=== PATIENT | female | born 1945 | race African-American/Black ===

== ENCOUNTER → 2016-09-06 | Outpatient (CLI) | payer MEDICARE ==
[2016-09-06 09:19] LABS: ALANINE AMINOTRANSFERASE 33 U/L (9-52); ALBUMIN 3.9 g/dL (3.5-5.0); ALKALINE PHOSPHATASE 52 U/L (38-126); ASPARTATE AMINO TRANSFERASE 19 U/L (14-36); BILIRUBIN,DIRECT 0.3 mg/dL (0.0-0.4); BILIRUBIN,TOTAL 0.6 mg/dL (0.2-1.3); CHOLESTEROL 175.26 mg/dL (0-200); Direct HDL 41 mg/dL (>40); TOTAL PROTEIN 7.8 g/dL (6.3-8.2); TRIGLYCERIDES 144 mg/dL (<150)
[2016-09-06 09:31] LABS: DIRECT LDL 77 mg/dL (<100)
== END ==
LOC: OD 07:51
PROVIDERS: ATTEND Specialist
DX: E11.9 Type 2 diabetes mellitus without complications (principal); I10 Essential (primary) hypertension; I27.2 Other secondary pulmonary hypertension; E66.8 Other obesity; I34.1 Nonrheumatic mitral (valve) prolapse; I48.0 Paroxysmal atrial fibrillation; R01.1 Cardiac murmur, unspecified; Z79.899 Other long term (current) drug therapy
CPT/HCPCS: 36415; 80061; 80076; 83036

== ENCOUNTER → 2016-10-26 | Outpatient (CLI) | payer MEDICARE ==
--- NOTE | 2016-10-26 15:21 | RADIOLOGY REPORT (SQ) ---
EXAM DESCRIPTION: CT ABD/PELVIS WITH IV ORAL COMPLETED DATE/TIME: 10/26/2016 2:04 pm REASON FOR STUDY: LOWER ABDOMINAL PAIN, UNSPECIFIED R10.30 LOWER ABDOMINAL PAIN, UNSPECIFIED COMPARISON: 07/11/2013. TECHNIQUE: CT scan of the abdomen and pelvis performed with oral contrast and no intravenous contras t. Images reviewed with lung, soft tissue, and bone windows. Reconstructed coronal and sagittal MPR i mages reviewed. All images stored on PACS. All CT scanners at this facility use dose modulation, iterative reconstruction, and/or weight based d osing when appropriate to reduce radiation dose to as low as reasonably achievable (ALARA). [facility]: Dose Right [facility]: CareDose [facility]: Dose Right [facility]: Teradose 4D [facility]: Smart Technologies RADIATION DOSE: Up-to-date CT equipment and radiation dose reduction techniques were employed. CTDIv ol: 15.3 - 17.2 mGy. DLP: 1661 mGy-cm.mGy. LIMITATIONS: None. FINDINGS: LOWER CHEST: No significant findings. No nodules or infiltrates. NON-CONTRASTED LIVER, SPLEEN, ADRENALS: Evaluation limited by lack of IV contrast. No identified sign ificant masses. PANCREAS: No masses. No peripancreatic inflammatory changes. GALLBLADDER: Surgically absent. RIGHT KIDNEY AND URETER: No solid masses. No significant calcification. No hydronephrosis or hydroure ter. LEFT KIDNEY AND URETER: No solid masses. No significant calcification. No hydronephrosis or hydrouret er. AORTA AND RETROPERITONEUM: No aneurysm. No retroperitoneal masses or adenopathy. BOWEL AND PERITONEAL CAVITY: Previous right hemicolectomy. Extensive diverticulosis throughout the c olon. No obvious masses or inflammatory changes. No free fluid. APPENDIX: Surgically absent. PELVIS, BLADDER, AND ABDOMINAL WALL: Heterogenous nodular appearance of the uterus with coarse calcif ications. No abdominal wall hernias. Bladder unremarkable. BONES: No significant findings. OTHER: No other significant finding. IMPRESSION: 1. PREVIOUS RIGHT HEMICOLECTOMY. EXTENSIVE COLONIC DIVERTICULOSIS. NO CT FINDINGS OF ACUTE DIVERTIC ULITIS. 2. FIBROID UTERUS. 3. NO OTHER SIGNIFICANT OR ACUTE ABDOMINAL PROCESS. TECHNICAL DOCUMENTATION: JOB ID: [id number] Quality ID # [id number]: Final reports with documentation of one or more dose reduction techniques (e.g., Au tomated exposure control, adjustment of the mA and/or kV according to patient size, use of iterative reconstruction technique) 2010 [employer]- All Rights Reserved
== END ==
LOC: RAD 13:13
PROVIDERS: ATTEND Internal Medicine
DX: K57.31 Diverticulosis of large intestine without perforation or abscess with bleeding (principal); D25.9 Leiomyoma of uterus, unspecified; R10.30 Lower abdominal pain, unspecified
CPT/HCPCS: 74177; 82565

== ENCOUNTER → 2017-01-06 | Outpatient (CLI) | payer MEDICARE ==
--- NOTE | 2017-01-06 13:02 | WOMENS IMAGING REPORT ---
EXAM DESCRIPTION: U/S ABDOMEN LIMITED COMPLETED DATE/TIME: 01/06/2017 10:09 am REASON FOR STUDY: UNSPECIFIED ABDOMINAL PAIN; R10.9 R10.9 UNSPECIFIED ABDOMINAL PAIN COMPARISON: CT abdomen pelvis 10/26/2016 TECHNIQUE: Dynamic and static grayscale images acquired of the abdomen and recorded on PACS. Additio nal selected color Doppler and spectral images recorded. LIMITATIONS: Large patient, midline bowel gas FINDINGS: PANCREAS: Midline pancreas unremarkable LIVER: Mild increased echogenicity of the liver could be seen in diffuse hepatocellular disease. No masses. LIVER VASCULATURE: Normal directional flow of the main portal vein and hepatic veins. GALLBLADDER: Surgically absent ULTRASOUND-DETECTED THOMAS'S SIGN: Negative. INTRAHEPATIC DUCTS AND COMMON DUCT: No definite intrahepatic biliary ductal dilatation. Common bile duct at the bernadine hepatis 8 to 9 mm in diameter. Distal most common duct not well seen due to duoden um gas. INFERIOR VENA CAVA: Normal flow. AORTA: No aneurysm. RIGHT KIDNEY: Normal size. Normal echogenicity. No solid or suspicious masses. 7 mm simple cyst upp er pole right kidney. No hydronephrosis. No calcifications. PERITONEAL AND RIGHT PLEURAL SPACE: No ascites or effusions. OTHER: No other significant findings. IMPRESSION: Mild increased echogenicity of the liver from diffuse hepatocellular disease. Post cholecystectomy. No gross biliary ductal dilatation. Distal most common duct not well seen due to duodenum gas TECHNICAL DOCUMENTATION: JOB ID: [id number]- All Rights Reserved
== END ==
LOC: WI 08:43
PROVIDERS: ATTEND Internal Medicine
DX: R10.9 Unspecified abdominal pain (principal)
CPT/HCPCS: 76705

== ENCOUNTER → 2017-01-18 | Outpatient (CLI) | payer MEDICARE ==
--- NOTE | 2017-01-18 16:41 | WOMENS IMAGING REPORT ---
EXAM DESCRIPTION: 3D SCREENING MAMMO BILAT COMPLETED DATE/TIME: 01/18/2017 11:57 am REASON FOR STUDY: ROUTINE SCREENING; Z12.31 Z12.31 ENCNTR SCREEN MAMMOGRAM FOR MALIGNANT NEOPLASM O F MEGHAN COMPARISON: Multiple since 2008 TECHNIQUE: Standard craniocaudal and mediolateral oblique views of each breast recorded using digita l acquisition and breast tomosynthesis. LIMITATIONS: None. FINDINGS: Findings present which are benign by mammographic criteria. No suspicious masses, calcifi cations or architectural distortion. Pertinent benign findings: Stable benign calcifications bilaterally Read with the assistance of CAD. .[facility] - R2 Cenova Version 1.3 .[facility] Imaging - R2 Cenova Version 1.3 .[facility] Imaging - R2 Cenova Version 2.4 .[facility] - R2 Cenova Version 2.4 .[facility] - R2 [employer] Supply Chain Planning Version 9.2 Benign mammographic findings may include one or more of the following: Smooth masses, popcorn/rim/co arse calcifications, asymmetries, post-procedure changes, and lesions with long-standing stability. IMPRESSION: BENIGN MAMMOGRAPHIC FINDINGS. BIRADS 2 BREAST DENSITY: b. There are scattered areas of fibroglandular density. BIRAD: 2 BENIGN FINDING(S) RECOMMENDATION: RECOMMENDATION: ROUTINE SCREENING Please continue yearly bilateral screening tomosynthesis in January 2018 COMMENT: The patient has been notified of the results by letter per SA requirements. Additional no tification policies are in place for contacting patient with suspicious or incomplete findings. Quality ID #[id number]: The [employer] recommends an annual screening mammogram for women aged 40 years or over. This facility utilizes a reminder system to ensure that all patients receive reminder letters, and/or direct phone calls for appointments. This includes reminders for routine scr eening mammograms, diagnostic mammograms, or other Breast Imaging Interventions when appropriate. Th is patient will be placed in the appropriate reminder system. The [employer] (ACR) has developed recommendations for screening MRI of the breast s in certain patient populations, to be used in conjunction with mammography. Breast MRI surveillanc e may be appropriate for women with more than 20% lifetime risk of developing breast cancer as deter mined by genetic testing, significant family history of the disease, or history of mantle radiation f or Hodgkins Disease. ACR Practice Guidelines 2008. DBT Technology DBT is a type of tomographic mammography. With conventional mammography, overlapping breast tissue ma y make lesions difficult to detect, even with good compression. DBT uses an x-ray tube that rotates a round the breast, taking images at different angles. These images are then combined to create thin sl ices of the breast that the radiologist can view as a 3D reconstruction. The [employer] unit can perform full-field digital mammograms (2D imaging); or DBT (3D imaging); or both, in a combination mode that quickly performs both the mammogram and the tomosynthesis scan while the breast is still compressed. PQRS 6045F: Fluoroscopic imaging is not utilized for breast tomosynthesis. TECHNICAL DOCUMENTATION: FINDING NUMBER: (1) ASSESSMENT: (1) JOB ID: [id number] [employer]- All Rights Reserved
== END ==
LOC: WI 11:20
PROVIDERS: ATTEND Obstetrics & Gynecology Gynecology
DX: Z12.31 Encounter for screening mammogram for malignant neoplasm of breast (principal)
CPT/HCPCS: 77063; G0202; 77067

== ENCOUNTER → 2017-02-15 | Outpatient (CLI) | payer MEDICARE ==
[2017-02-15 11:33] LABS: HEMOGLOBIN 10.6 g/dL (12.0-15.5); HGB HCT DIFFERENCE -0.2; MEAN CORPUSCULAR HEMOGLOBIN 28.5 pg (27.0-33.4); MEAN CORPUSCULAR VOLUME 87 fl (80-97); RED CELL DISTRIBUTION WIDTH 14.6 % (11.5-14.0); WHITE BLOOD COUNT 4.5 10^3/uL (4.0-10.5)
[2017-02-15 11:38] LABS: APPEARANCE,URINE SLIGHTLY-CLOUDY; BILIRUBIN,URINE NEGATIVE (NEGATIVE); GLUCOSE, URINE 50 mg/dL (NEGATIVE); KETONES,URINE NEGATIVE (NEGATIVE); LEUKOCYTE ESTERASE,URINE MODERATE (NEGATIVE); NITRITE,URINE NEGATIVE (NEGATIVE); PROTEIN,URINE NEGATIVE (NEGATIVE); URINE SPECIFIC GRAVITY 1.015; UROBILINOGEN,URINE NEGATIVE mg/dL (<2.0)
[2017-02-15 12:02] LABS: BLOOD UREA NITROGEN 12 mg/dL (7-20); CALCIUM 9.6 mg/dL (8.4-10.2); CARBON DIOXIDE 30 mmol/L (22-30); CHLORIDE 101 mmol/L (98-107); GLUCOSE 155 mg/dL (75-110); POTASSIUM 3.7 mmol/L (3.6-5.0)
[2017-02-15 12:04] LABS: ANION GAP 15 (5-19); SODIUM 145.8 mmol/L (137-145)
== END ==
LOC: OD 10:23
PROVIDERS: ATTEND Internal Medicine Nephrology
DX: I10 Essential (primary) hypertension (principal); E11.9 Type 2 diabetes mellitus without complications
CPT/HCPCS: 36415; 80048; 81001; 85027

== ENCOUNTER → 2017-03-22 | Outpatient (CLI) | payer MEDICARE ==
[2017-03-22 11:02] LABS: HEMATOCRIT 31.3 % (36.0-47.0); HEMOGLOBIN 10.4 g/dL (12.0-15.5); HGB HCT DIFFERENCE -0.1; MEAN CORPUSCULAR HEMOGLOBIN 28.6 pg (27.0-33.4); MEAN CORPUSCULAR HGB CONC 33.3 g/dL (32.0-36.0); MEAN CORPUSCULAR VOLUME 86 fl (80-97); RED BLOOD COUNT 3.64 10^6/uL (3.72-5.28); RED CELL DISTRIBUTION WIDTH 14.7 % (11.5-14.0); WHITE BLOOD COUNT 5.8 10^3/uL (4.0-10.5)
[2017-03-28 10:04] LABS: A/G RATIO 0.7 (0.7-1.7); ALPHA-1-GLOBULIN 2 0.4 g/dL (0.0-0.4); PROTEIN TOTAL SERUM 7.8 g/dL (6.0-8.5)
== END ==
LOC: OD 09:10
PROVIDERS: ATTEND Internal Medicine Nephrology
DX: I12.9 Hypertensive chronic kidney disease with stage 1 through stage 4 chronic kidney disease, or unspecified chronic kidney disease (principal); N18.2 Chronic kidney disease, stage 2 (mild); E11.9 Type 2 diabetes mellitus without complications; D64.9 Anemia, unspecified
CPT/HCPCS: 36415; 82728; 83540; 83550; 84165; 84443; 85027

== ENCOUNTER → 2017-04-25 | Outpatient (CLI) | payer MEDICARE ==
--- NOTE | 2017-04-25 15:48 | RADIOLOGY REPORT (SQ) ---
EXAM DESCRIPTION: BONE SURVEY COMPLETE COMPLETED DATE/TIME: 04/25/2017 3:25 pm REASON FOR STUDY: Z86.2 PERSONAL HISTORY OF DISEASES OF THE BLOOD AND BLOOD-FORMING Z86.2 PRSNL HIS TORY OF DIS OF THE BLD/BLD-FORM ORG/[facility] COMPARISON: None. TECHNIQUE: Images of the axial and proximal appendicular skeleton are obtained, along with lateral s kull and frontal chest films. LIMITATIONS: None. FINDINGS: AP CHEST: No bony findings. Lungs are clear. LATERAL SKULL: No worrisome bone lesions. AP BOTH HUMERI: No worrisome bone lesions. TWO-VIEW LUMBAR SPINE: No worrisome bone lesions. TWO-VIEW THORACIC SPINE: No worrisome bone lesions. AP PELVIS: No worrisome bone lesions. AP BOTH FEMURS: No worrisome bone lesions. OTHER: Degenerative changes are identified in the cervical and thoracic spines and to a lesser extent the lumbar spine. IMPRESSION: NO WORRISOME BONE LESIONS. TECHNICAL DOCUMENTATION: JOB ID: [id number] [employer]- All Rights Reserved
== END ==
LOC: RAD 15:02
PROVIDERS: ATTEND Internal Medicine Medical Oncology
DX: Z86.2 Personal history of diseases of the blood and blood-forming organs and certain disorders involving the immune mechanism (principal); D64.9 Anemia, unspecified
CPT/HCPCS: 77075

== ENCOUNTER → 2017-09-22 | Outpatient (CLI) | payer MEDICARE ==
[2017-09-22 13:50] LABS: HEMATOCRIT 34.2 % (36.0-47.0); HEMOGLOBIN 11.2 g/dL (12.0-15.5); MEAN CORPUSCULAR HEMOGLOBIN 29.1 pg (27.0-33.4); MEAN CORPUSCULAR HGB CONC 32.8 g/dL (32.0-36.0); MEAN CORPUSCULAR VOLUME 89 fl (80-97); PLATELET COUNT 209 10^3/uL (150-450); RED BLOOD COUNT 3.87 10^6/uL (3.72-5.28); RED CELL DISTRIBUTION WIDTH 14.6 % (11.5-14.0); WHITE BLOOD COUNT 5.2 10^3/uL (4.0-10.5)
[2017-09-22 14:10] LABS: ANION GAP 11 (5-19); BLOOD UREA NITROGEN 19 mg/dL (7-20); CALCIUM 9.8 mg/dL (8.4-10.2); CARBON DIOXIDE 29 mmol/L (22-30); CHLORIDE 106 mmol/L (98-107); GLUCOSE 96 mg/dL (75-110); POTASSIUM 4.7 mmol/L (3.6-5.0); SODIUM 145.5 mmol/L (137-145)
[2017-09-25 16:39] LABS: ALBUMIN 2 3.7 g/dL (2.9-4.4); ALPHA-2-GLOBULIN 2 0.7 g/dL (0.4-1.0); BETA GLOBULINS 0.9 g/dL (0.7-1.3); GAMMA GLOBULIN 1.7 g/dL (0.4-1.8); GLOBULIN TOTAL 3.6 g/dL (2.2-3.9); PROTEIN TOTAL SERUM 7.3 g/dL (6.0-8.5)
[2017-09-26 07:21] LABS: MONOCLONAL SPIKE 0.9 g/dL (Not Observ)
== END ==
LOC: OD 12:52
PROVIDERS: ATTEND Internal Medicine Nephrology
DX: I10 Essential (primary) hypertension (principal); E11.9 Type 2 diabetes mellitus without complications; D64.9 Anemia, unspecified
CPT/HCPCS: 36415; 80048; 84165; 85027

== ENCOUNTER → 2018-01-24 | Outpatient (CLI) | payer MEDICARE ==
--- NOTE | 2018-01-24 15:34 | WOMENS IMAGING REPORT ---
EXAM DESCRIPTION: BILAT SCREENING MAMMO W/CAD COMPLETED DATE/TIME: 01/24/2018 11:13 am REASON FOR STUDY: SCREENING MAMMO Z12.31 ENCNTR SCREEN MAMMOGRAM FOR MALIGNANT NEOPLASM OF MEGHAN COMPARISON: 2012 to 2016 TECHNIQUE: Standard craniocaudal and mediolateral oblique views of each breast recorded using digita l acquisition. LIMITATIONS: None. FINDINGS: No masses, calcifications or architectural distortion. No areas of suspicion. Read with the assistance of CAD. .[facility] - R2 Cenova Version 1.3 .[facility] Imaging - R2 Cenova Version 1.3 .[facility] - R2 Cenova Version 2.4 .[facility] [place] [facility] - R2 Cenova Version 2.4 .[facility] - R2 Manager Utilization Review Version 9.2 IMPRESSION: NORMAL MAMMOGRAM. BIRADS 1. BREAST DENSITY: b. There are scattered areas of fibroglandular density. BIRAD: 1 NEGATIVE RECOMMENDATION: ROUTINE SCREENING COMMENT: The patient has been notified of the results by letter per MQSA requirements. Additional no tification policies are in place for contacting patient with suspicious or incomplete findings. Quality ID #225: The [employer] recommends an annual screening mammogram for women aged 40 years or over. This facility utilizes a reminder system to ensure that all patients receive reminder letters, and/or direct phone calls for appointments. This includes reminders for routine scr eening mammograms, diagnostic mammograms, or other Breast Imaging Interventions when appropriate. Th is patient will be placed in the appropriate reminder system. The [employer] (ACR) has developed recommendations for screening MRI of the breast s in certain patient populations, to be used in conjunction with mammography. Breast MRI surveillanc e may be appropriate for women with more than 20% lifetime risk of developing breast cancer as deter mined by genetic testing, significant family history of the disease, or history of mantle radiation f or Hodgkins Disease. ACR Practice Guidelines 2008. TECHNICAL DOCUMENTATION: FINDING NUMBER: (1) ASSESSMENT: (1) JOB ID: [id number] [employer]- All Rights Reserved Reading location - IP/workstation name: [email or web address]
== END ==
LOC: WI 10:52
PROVIDERS: ATTEND Internal Medicine
DX: Z12.31 Encounter for screening mammogram for malignant neoplasm of breast (principal)
CPT/HCPCS: 77067

== ENCOUNTER → 2019-02-20 | Outpatient (CLI) | payer MEDICARE ==
--- NOTE | 2019-02-20 14:36 | WOMENS IMAGING REPORT ---
EXAM DESCRIPTION: BILAT SCREENING MAMMO W/CAD COMPLETED DATE/TIME: 02/20/2019 11:46 am REASON FOR STUDY: Z12.31 SCREENING MAMMO Z12.31 ENCNTR SCREEN MAMMOGRAM FOR MALIGNANT NEOPLASM OF B RE COMPARISON: Multiple since 2008 EXAM PARAMETERS: Standard craniocaudal and mediolateral oblique views of each breast recorded using digital acquisition. Read with the assistance of CAD. .[employer] Version 9.2 LIMITATIONS: None. FINDINGS: No suspicious masses, suspicious calcifications or architectural distortion. No areas of c oncern. IMPRESSION: Negative MAMMOGRAM. BIRADS 1 BREAST DENSITY: b. There are scattered areas of fibroglandular density. BIRAD: ASSESSMENT: 1 NEGATIVE RECOMMENDATION: ROUTINE SCREENING Please continue yearly bilateral screening mammography/tomosynthesis in February 2020 COMMENT: The patient has been notified of the results by letter per SA requirements. Additional no tification policies are in place for contacting patient with suspicious or incomplete findings. Quality ID #[id number]: The [employer] recommends an annual screening mammogram for women aged 40 years or over. This facility utilizes a reminder system to ensure that all patients receive reminder letters, and/or direct phone calls for appointments. This includes reminders for routine scr eening mammograms, diagnostic mammograms, or other Breast Imaging Interventions when appropriate. Th is patient will be placed in the appropriate reminder system. TECHNICAL DOCUMENTATION: FINDING NUMBER: (1) ASSESSMENT: (1) JOB ID: [id number] [employer]- All Rights Reserved Reading location - IP/workstation name: [email or web address]
== END ==
LOC: RAD 11:00
PROVIDERS: ATTEND Internal Medicine
DX: Z12.31 Encounter for screening mammogram for malignant neoplasm of breast (principal)
CPT/HCPCS: 77067

== ENCOUNTER → 2019-06-10 | Outpatient (CLI) | payer MEDICARE ==
[2019-06-10 17:58] LABS: HEMOGLOBIN 11.3 g/dL (12.0-15.5); MEAN CORPUSCULAR HEMOGLOBIN 30.6 pg (27.0-33.4); MEAN CORPUSCULAR HGB CONC 34.2 g/dL (32.0-36.0); MEAN CORPUSCULAR VOLUME 89 fl (80-97); PLATELET COUNT 225 10^3/uL (150-450); RED CELL DISTRIBUTION WIDTH 14.3 % (11.5-14.0); WHITE BLOOD COUNT 6.2 10^3/uL (4.0-10.5)
== END ==
LOC: LAB 17:44
PROVIDERS: ATTEND Internal Medicine Gastroenterology
DX: K62.5 Hemorrhage of anus and rectum (principal)
CPT/HCPCS: 36415; 82728; 85027

== ENCOUNTER → 2019-07-24 | Outpatient (CLI) | payer MEDICARE ==
[2019-07-24 16:42] LABS: ABSOLUTE BASOPHILS # (AUTO) 0.1 10^3/uL (0.0-0.2); ABSOLUTE EOSINOPHILS # (AUTO) 0.1 10^3/uL (0.0-0.6); ABSOLUTE LYMPHOCYTES (AUTO) 1.6 10^3/uL (0.5-4.7); ABSOLUTE MONOCYTES (AUTO) 0.4 10^3/uL (0.1-1.4); ABSOLUTE NEUT (AUTO) 3.3 10^3/uL (1.7-8.2); BASOPHILS % (AUTO) 1.2 % (0-2); EOSINOPHILS % (AUTO) 1.7 % (0-6); HEMATOCRIT 36.6 % (36.0-47.0); HEMOGLOBIN 12.3 g/dL (12.0-15.5); LYMPHOCYTES % (AUTO) 29.2 % (13-45); MEAN CORPUSCULAR HEMOGLOBIN 30.2 pg (27.0-33.4); MEAN CORPUSCULAR HGB CONC 33.6 g/dL (32.0-36.0); MEAN CORPUSCULAR VOLUME 90 fl (80-97); MONOCYTES % (AUTO) 7.5 % (3-13); PLATELET COUNT 249 10^3/uL (150-450); RED BLOOD COUNT 4.07 10^6/uL (3.72-5.28); RED CELL DISTRIBUTION WIDTH 14.9 % (11.5-14.0); SEGMENTED NEUTROPHILS % (AUTO) 60.4 % (42-78); TOTAL CELLS COUNTED % (AUTO) 100 %; WHITE BLOOD COUNT 5.5 10^3/uL (4.0-10.5)
[2019-07-24 18:27] LABS: ANION GAP 13 (5-19); BLOOD UREA NITROGEN 20 mg/dL (7-20); CALCIUM 10.3 mg/dL (8.4-10.2); CARBON DIOXIDE 23 mmol/L (22-30); CHLORIDE 104 mmol/L (98-107); GLUCOSE 129 mg/dL (75-110); POTASSIUM 4.2 mmol/L (3.6-5.0)
[2019-07-25 11:28] LABS: APPEARANCE,URINE SLIGHTLY-CLOUDY; BILIRUBIN,URINE NEGATIVE (NEGATIVE); COLOR,URINE YELLOW; GLUCOSE, URINE 50 mg/dL (NEGATIVE); KETONES,URINE NEGATIVE (NEGATIVE); LEUKOCYTE ESTERASE,URINE MODERATE (NEGATIVE); NITRITE,URINE NEGATIVE (NEGATIVE); PROTEIN,URINE NEGATIVE (NEGATIVE); URINE SPECIFIC GRAVITY 1.013; UROBILINOGEN,URINE NEGATIVE mg/dL (<2.0)
[2019-07-25 14:40] LABS: C DIFFICILE GDH NEGATIVE (NEGATIVE)
== END ==
LOC: OD 15:37
PROVIDERS: ATTEND Internal Medicine Gastroenterology
DX: R19.7 Diarrhea, unspecified (principal); R30.0 Dysuria
CPT/HCPCS: 36415; 80048; 81001; 85025; 87324; 87449; 89055

== ENCOUNTER 2020-02-07 17:25 | Emergency (ER) | payer MEDICARE ==
--- NOTE | 2020-02-07 17:59 | ER Document Report ---
ED Medical Screen (RME) - General Chief Complaint: Flu Symptoms Stated Complaint: UPPER BACK PAIN,ARM PAIN Time Seen by Provider: 02/07/20 17:53 Primary Care Provider: GAB IRWIN MD [Primary Care Provider] - Follow up as needed Mode of Arrival: Ambulatory Information source: Patient Notes: 74-year-old female presented to ED for cough cold congestion body aches. She had a Covid test today but does not know the results. She states she does have cough and congestion she does have history of A. fib. She states she has not done anything that should be making her ache all over. She does not smoke or drink. She does not have COPD asthma history. Have reviewed her history with her and updated it. I have greeted and performed a rapid initial assessment of this patient. A comprehensive ED assessment and evaluation of the patient, analysis of test results and completion of medical decision making process will be conducted by an additional ED providers. TRAVEL OUTSIDE OF THE [place] IN LAST 30 DAYS: No - Related Data Allergies/Adverse Reactions: Penicillins Allergy (Intermediate, Verified 02/02/17 20:40) itchy rash Past Medical History - General Information source: Patient - Social History Cigarette use (# per day): No Frequency of alcohol use: None Drug Abuse: None Lives with: Alone Family history: Reviewed & Not Pertinent - Past Medical History Cardiac Medical History: Reports: Hx Hypertension - medicated Pulmonary Medical History: Reports: Hx Bronchitis EENT Medical History: Reports: None Neurological Medical History: Reports: None Endocrine Medical History: Reports: Hx Diabetes Mellitus Type 2 Renal/ Medical History: Reports: None Malignancy Medical History: Reports: None GI Medical History: Reports: Hx Diverticulitis, Hx Gastroesophageal Reflux Disease, Hx Irritable Bowel, Hx Colonoscopy, Hx Endoscopy Musculoskeltal Medical History: Reports Hx Arthritis Skin Medical History: Reports None Psychiatric Medical History: Reports: None Traumatic Medical History: Reports: None Past Surgical History: Reports: Hx Bowel Surgery - Partial colectomy for bleeding diverticular disease, Hx Cholecystectomy - Immunizations Hx Diphtheria, Pertussis, Tetanus Vaccination: Yes History of Pneumococcal Vaccine: No History of Influenza Vaccine for 01/2019 - 06/2019 Season: No Physical Exam - Vital signs Vitals: Temp Pulse Resp BP Pulse Ox 99.6 F 74 16 198/90 H 99 02/07/20 17:33 02/07/20 17:33 02/07/20 17:33 02/07/20 17:33 02/07/20 17:33 Course - Vital Signs Vital signs: Temp Pulse Resp BP Pulse Ox 99.6 F 74 16 198/90 H 99 02/07/20 17:33 02/07/20 17:33 02/07/20 17:33 02/07/20 17:33 02/07/20 17:33 Doctor's Discharge - Discharge Referrals: GAB IRWIN MD [Primary Care Provider] - Follow up as needed
--- NOTE | 2020-02-07 18:38 | RADIOLOGY REPORT (SQ) ---
EXAM DESCRIPTION: CHEST SINGLE VIEW IMAGES COMPLETED DATE/TIME: 02/07/2020 6:24 pm REASON FOR STUDY: Cough congestion short of breath COMPARISON: 07/01/2012 EXAM PARAMETERS: NUMBER OF VIEWS: One view. TECHNIQUE: Single frontal radiographic view of the chest acquired. RADIATION DOSE: NA LIMITATIONS: None. FINDINGS: LUNGS AND PLEURA: No opacities, masses or pneumothorax. No pleural effusion. MEDIASTINUM AND HILAR STRUCTURES: No masses. Contour normal. HEART AND VASCULAR STRUCTURES: The heart size is borderline. There is no pulmonary edema. BONES: No acute findings. HARDWARE: None in the chest. OTHER: No other significant finding. IMPRESSION: Borderline cardiomegaly without pulmonary edema. TECHNICAL DOCUMENTATION: JOB ID: [id number] [address]- All Rights Reserved Reading location - IP/workstation name: [email or web address]
[2020-02-07 19:54] LABS: ABSOLUTE LYMPHOCYTES (AUTO) 0.5 10^3/uL (0.5-4.7); ABSOLUTE MONOCYTES (AUTO) 0.5 10^3/uL (0.1-1.4); ABSOLUTE NEUT (AUTO) 3.6 10^3/uL (1.7-8.2); BASOPHILS % (AUTO) 0.3 % (0-2); EOSINOPHILS % (AUTO) 0.3 % (0-6); HEMOGLOBIN 12.2 g/dL (12.0-15.5); LYMPHOCYTES % (AUTO) 11.1 % (13-45); MEAN CORPUSCULAR HGB CONC 33.8 g/dL (32.0-36.0); MEAN CORPUSCULAR VOLUME 89 fl (80-97); MONOCYTES % (AUTO) 11.5 % (3-13); PLATELET COUNT 187 10^3/uL (150-450); RED BLOOD COUNT 4.05 10^6/uL (3.72-5.28); RED CELL DISTRIBUTION WIDTH 14.5 % (11.5-14.0); SEGMENTED NEUTROPHILS % (AUTO) 76.8 % (42-78); TOTAL CELLS COUNTED % (AUTO) 100 %; WHITE BLOOD COUNT 4.7 10^3/uL (4.0-10.5)
[2020-02-07 20:17] LABS: ALBUMIN 4.5 g/dL (3.5-5.0); ALKALINE PHOSPHATASE 50 U/L (38-126); ANION GAP 10 (5-19); ASPARTATE AMINO TRANSFERASE 23 U/L (14-36); BILIRUBIN,DIRECT 0.1 mg/dL (0.0-0.4); BILIRUBIN,TOTAL 0.4 mg/dL (0.2-1.3); BLOOD UREA NITROGEN 16 mg/dL (7-20); CALCIUM 10.1 mg/dL (8.4-10.2); CARBON DIOXIDE 30 mmol/L (22-30); CHLORIDE 102 mmol/L (98-107); GLUCOSE 156 mg/dL (75-110); POTASSIUM 3.7 mmol/L (3.6-5.0); TOTAL PROTEIN 8.6 g/dL (6.3-8.2)
[2020-02-07 20:22] LABS: A TYPE INFLUENZA AG NEGATIVE (NEGATIVE); B INFLUENZA AG NEGATIVE (NEGATIVE)
[2020-02-07] MEDS ORDERED: IBUPROFEN 400 MG TABLET PO ONE (20:45)
--- NOTE | 2020-02-07 21:40 | ER Document Report ---
ED General - General Chief Complaint: Flu Symptoms Stated Complaint: UPPER BACK PAIN,ARM PAIN Time Seen by Provider: 02/07/20 17:53 Primary Care Provider: GAB IRWIN MD [Primary Care Provider] - Follow up as needed Mode of Arrival: Ambulatory Notes: 74-year-old female history of high blood pressure, diabetes presents with concern that she has COVID-19. Patient has had a mild intermittent dry cough for 2 days associated with nasal congestion and malaise with diffuse myalgia over back and the arms and legs. Patient otherwise feels well, had Covid test done at urgent care by because she cannot get the result today and was worried about having it she came to the emergency department. Patient has not gotten results yet. Patient denies any productive cough, shortness of breath, d izziness, syncope, chest pain, productive cough, lower extremity edema, abdominal pain, vomiting, diarrhea, rashes, sick contacts TRAVEL OUTSIDE OF THE [place] IN LAST 30 DAYS: No - Related Data Allergies/Adverse Reactions: Penicillins Allergy (Intermediate, Verified 02/02/17 20:40) itchy rash Past Medical History - General Information source: Patient - Social History Smoking Status: Never Smoker Cigarette use (# per day): No Frequency of alcohol use: None Drug Abuse: None Lives with: Alone Family History: Reviewed & Not Pertinent - Past Medical History Cardiac Medical History: Reports: Hx Hypertension - medicated Pulmonary Medical History: Reports: None, Hx Bronchitis EENT Medical History: Reports: None Neurological Medical History: Reports: None Endocrine Medical History: Reports: Hx Diabetes Mellitus Type 2 Renal/ Medical History: Reports: None Malignancy Medical History: Reports: None GI Medical History: Reports: Hx Diverticulitis, Hx Gastroesophageal Reflux Disease, Hx Irritable Bowel, Hx Colonoscopy, Hx Endoscopy Musculoskeletal Medical History: Reports Hx Arthritis Skin Medical History: Reports None Psychiatric Medical History: Reports: None Traumatic Medical History: Reports: None Past Surgical History: Reports: Hx Bowel Surgery - Partial colectomy for bleeding diverticular disease, Hx Cholecystectomy - Immunizations Hx Diphtheria, Pertussis, Tetanus Vaccination: Yes History of Pneumococcal Vaccine: No Review of Systems - Review of Systems Notes: REVIEW OF SYSTEMS: CONSTITUTIONAL : Denies fever, chills, or sweats. EENT: + recent cold symptoms, denies throat pain CARDIOVASCULAR: Denies chest pain, ZANE RESPIRATORY: + cough, denies shortness of breath. GASTROINTESTINAL: Denies abdominal pain, nausea/vomiting. GENITOURINARY: Denies difficulty urinating, painful urination. FEMALE GENITOURINARY: Denies abnormal vaginal bleeding, vaginal discharge. MUSCULOSKELETAL: Denies neck pain, +back pain. SKIN: Denies rash or skin lesions. HEMATOLOGIC : Denies easy bruising or bleeding. LYMPHATIC: Denies swollen, enlarged glands. NEUROLOGICAL: Denies headache, denies change in gait. PSYCHIATRIC: Denies anxiety or stress or depression. Physical Exam - Vital signs Vitals: Temp Pulse Resp BP Pulse Ox 99.6 F 74 16 198/90 H 99 02/07/20 17:33 02/07/20 17:33 02/07/20 17:33 02/07/20 17:33 02/07/20 17:33 - Notes Notes: PHYSICAL EXAMINATION: GENERAL: Well-appearing, well-nourished, spry talkative and cheerful elderly woman appearing stated age sitting up in stretcher with no visible signs of discomfort and in no acute distress HEAD: Atraumatic, normocephalic. EYES: Pupils equal round and appropriate constriction, sclera anicteric, conjunctiva are normal. ENT: nares patent, moist mucous membranes. NECK/BACK: Normal range of motion, supple without lymphadenopathy, no midline C/T/L/spinal tenderness or deformity LUNGS: Breath sounds clear to auscultation bilaterally and equal. No wheezes rales or rhonchi. Normal respiratory rate and effort, speaking in full sentences, managing secretions, no tripoding, no accessory muscle use HEART: Regular rate and rhythm with faint systolic murmur, no rubs, no gallops ABDOMEN: Soft, nontender, no guarding, no masses, no CVAT EXTREMITIES: Normal range of motion, no pitting or edema. No cyanosis. NEUROLOGICAL: Awake, alert, conversing appropriately, moves all extremities spontaneously. PSYCH: Normal mood, normal affect. SKIN: Warm, Dry, normal turgor, no rashes or lesions noted. Course - Re-evaluation Re-evalutation: 02/07/20 21:38 Patient with very mild viral symptoms of short duration, completely normal respiratory status, very well-appearing, no concerning exam findings. Patient's blood pressure elevated but asymptomatic, likely secondary to her current viral infection. Patient took acetaminophen for her symptoms without relief prior to arrival, I discussed with her and her daughter whether or not she should try ibuprofen and she denies ever having any problem with NSAIDs in the past or any bleeding or renal history and agreed to trial of ibuprofen. Obtain lab work to ensure that patient had no significant RYLEE or rhabdo was from her myalgia viral symptoms and no electrolyte abnormalities requiring immediate treatment. Patient's lab work all looks reassuring, normal EKG, borderline cardiomegaly on chest x-ray which I have instructed patient to follow-up with her primary doctor. Patient feels reassured and very well at this time and is appropriate for outpatient management with close PCP follow-up. Gave patient return to ED precautions which she demonstrated understanding of. The patient was evaluated during the global COVID-19 pandemic and that diagnosis was suspected/considered upon their initial presentation. Their evaluation, treatment and testing was consistent with current guidelines for patients who present with complaints or symptoms that may be related to COVID-19. - Vital Signs Vital signs: Temp Pulse Resp BP Pulse Ox 99.6 F 74 16 198/90 H 99 02/07/20 17:33 02/07/20 17:33 02/07/20 17:33 02/07/20 17:33 02/07/20 17:33 - Laboratory Result Diagrams: 02/07/20 19:23 02/07/20 19:23 Laboratory results interpreted by me: 02/07/20 02/07/20 19:23 19:23 RDW 14.5 H Lymph % (Auto) 11.1 L Est GFR (MDRD) Non-Af 57 L Glucose 156 H Total Protein 8.6 H - EKG Interpretation by Me Additional EKG results interpreted by me: 02/07/20 21:51 Sinus rhythm, borderline LVH, no significant ST elevations or depressions, no significant T wave abnormalities Discharge - Discharge Clinical Impression: Viral syndrome, Cardiomegaly, Elevated blood protein, Hyperglycemia Hypertension Qualifiers: Hypertension type: unspecified Qualified Code(s): I10 - Essential (primary) hypertension Disposition: HOME, SELF-CARE Additional Instructions: As a person under investigation for Covid 19, the [facility], division of public health advises you to adhere to the following guidance until your test results are reported to you. If your test result is positive, you will receive additional information from your provider and your local health department at that time. Remain at home until you are cleared by the health provider or public health authorities. Keep a log of visitors to your home, notify any visitors to your home of your i solation status. If you plan to move to a new address or leave the county, notify the local health department in your County. Call your doctor or seek care if you have an urgent medical need. Before seeking medical care, call ahead to get instructions from the provider before arriving at the medical office clinic or hospital. Notify them that you are being tested for the virus that causes Covid 19 so that arrangements can be made, as necessary, to prevent transmission to others in the healthcare setting. Next, notify the local health department in your county. If a medical emergency arises and you need to call 911, inform the first responders that you are being tested for the virus that causes Covid 19. Next, notify the local health department in your county. You had several small abnormalities during your emergency department evaluation including slightly enlarged heart, elevated protein and blood, decreased lymphocytes, increased blood sugar. Patient discussed all these findings with your primary doctor. Follow-up with your primary doctor in the next 3 to 5 days. If you have any worsening symptoms, shortness of breath, worsening cough, chest pain, dizziness, fainting, leg swelling, rashes, confusion, neck pain or stiffness, weakness, or any other worsening or alarming symptoms please return to the emergency department immediately. If your pain is not relieved with acetaminophen try ibuprofen 400 mg by mouth every 8 hours as needed. If you have any abdominal discomfort, black or bloody stool, vomiting, or any other above symptoms stop taking ibuprofen immediately and return to the emergency department. Prescriptions: Ibuprofen [Ibu] 400 mg PO Q8HP PRN #15 tablet PRN Reason: For Breakthrough Pain Referrals: GAB IRWIN MD [Primary Care Provider] - Follow up in 3-5 days
[2020-02-07 22:24] VITALS: BP 153/82
--- NOTE | 2020-02-08 06:56 | EKG REPORT ---
SEVERITY:- ABNORMAL ECG - SINUS RHYTHM CONSIDER LEFT VENTRICULAR HYPERTROPHY : Confirmed by: Washington Wilhelm MD 08-Feb-2020 06:54:56
== END 2020-02-07 22:24 | disposition home or self-care (01) ==
LOC: ER 17:25
DX: B34.9 Viral infection, unspecified (principal); I11.9 Hypertensive heart disease without heart failure; E11.65 Type 2 diabetes mellitus with hyperglycemia; R05 Cough; R09.81 Nasal congestion; R53.81 Other malaise; M79.18 Myalgia, other site; R79.89 Other specified abnormal findings of blood chemistry; Z88.0 Allergy status to penicillin; Z20.828 Contact with and (suspected) exposure to other viral communicable diseases
CPT/HCPCS: 93005; 99285; 36415; 87070; 87880; 82550; 85025; 80053; 84484; 87804; 71045; 93010; A9270; J3490

== ENCOUNTER 2020-02-14 03:12 | Inpatient (IN) | payer MEDICARE ==
[2020-02-14] MEDS ORDERED: ACETAMINOPHEN 325 MG TABLET PO ONE (03:52)
--- NOTE | 2020-02-14 05:04 | RADIOLOGY REPORT (SQ) ---
AP Portable chest: 02/14/2020 4:02 AM [facility] History: 74-year old patient with fever, cough, COVID infection. Comparison: Chest radiograph performed 02/07/2020. Findings: The cardiomediastinal silhouette is normal in size. No pneumothorax is seen. There are peripheral bilateral groundglass airspace opacities consistent with the patient's history COVID infection. No discrete pleural effusion is apparent. There is elevation of right hemidiaphragm. Impression: There are peripheral bilateral groundglass airspace opacities consistent with the patient's history COVID infection.
[2020-02-14 05:42] LABS: VENOUS BLOOD BASE EXCESS -1.4 mmol/L; VENOUS BLOOD HCO3 23.2 mmol/L (20-32); VENOUS BLOOD PCO2 38.7 mmHg (35-63); VENOUS BLOOD PH 7.4 (7.30-7.42)
[2020-02-14 05:47] LABS: ABSOLUTE LYMPHOCYTES (AUTO) 0.6 10^3/uL (0.5-4.7); ABSOLUTE MONOCYTES (AUTO) 0.2 10^3/uL (0.1-1.4); ABSOLUTE NEUT (AUTO) 4.5 10^3/uL (1.7-8.2); BASOPHILS % (AUTO) 0.3 % (0-2); HEMATOCRIT 36.6 % (36.0-47.0); HEMOGLOBIN 12.1 g/dL (12.0-15.5); LYMPHOCYTES % (AUTO) 10.9 % (13-45); MEAN CORPUSCULAR HEMOGLOBIN 29.1 pg (27.0-33.4); MEAN CORPUSCULAR HGB CONC 32.9 g/dL (32.0-36.0); MEAN CORPUSCULAR VOLUME 89 fl (80-97); MONOCYTES % (AUTO) 3.8 % (3-13); PLATELET COUNT 127 10^3/uL (150-450); RED BLOOD COUNT 4.14 10^6/uL (3.72-5.28); RED CELL DISTRIBUTION WIDTH 14.5 % (11.5-14.0); TOTAL CELLS COUNTED % (AUTO) 100 %; WHITE BLOOD COUNT 5.3 10^3/uL (4.0-10.5)
[2020-02-14 05:54] LABS: INTERNATIONAL RATION (INR) 0.95; PROTHROMBIN TIME 12.9 SEC (11.4-15.4)
--- NOTE | 2020-02-14 06:03 | ER Document Report ---
ED General - General TRAVEL OUTSIDE OF THE [place] IN LAST 30 DAYS: No <THIAGO GILBERT - Last Filed: 02/14/20 06:26> <ALEX SAN - Last Filed: 02/14/20 08:09> - General Chief Complaint: Fever Stated Complaint: FEVER/COVID + Time Seen by Provider: 02/14/20 03:52 Primary Care Provider: GAB IRWIN MD [Primary Care Provider] - Follow up as needed - HPI Notes: Patient is a 74-year-old female presents emergency department for evaluation. She states that about a week ago she was diagnosed with Covid. She continues to get shaking chills, coughing, worsening breathing. She is still urinating. She denies any nausea or vomiting. She did have some diarrhea but it seems to have resolved. (THIAGO GILBERT) - Related Data Allergies/Adverse Reactions: Penicillins Allergy (Intermediate, Verified 02/02/17 20:40) itchy rash Past Medical History - General Information source: Patient - Social History Smoking Status: Former Smoker Family History: Reviewed & Not Pertinent - Past Medical History Cardiac Medical History: Reports: Hx Atrial Fibrillation, Hx Hypertension - medicated Pulmonary Medical History: Reports: Hx Bronchitis GI Medical History: Reports: Hx Diverticulitis, Hx Gastroesophageal Reflux Disease, Hx Irritable Bowel, Hx Colonoscopy, Hx Endoscopy Musculoskeletal Medical History: Reports Hx Arthritis Past Surgical History: Reports: Hx Bowel Surgery - Partial colectomy for bleed ing diverticular disease, Hx Cholecystectomy - Immunizations Hx Diphtheria, Pertussis, Tetanus Vaccination: Yes <THIAGO GILBERT - Last Filed: 02/14/20 06:26> Review of Systems - Review of Systems Constitutional: See HPI EENT: Nose congestion Cardiovascular: No symptoms reported Respiratory: See HPI Gastrointestinal: See HPI Genitourinary: No symptoms reported Musculoskeletal: No symptoms reported Skin: No symptoms reported Neurological/Psychological: No symptoms reported -: Yes All other systems reviewed and negative <THIAGO GILBERT - Last Filed: 02/14/20 06:26> Physical Exam <THIAGO GILBERT - Last Filed: 02/14/20 06:26> - Vital signs Vitals: Temp Pulse Resp BP Pulse Ox 102.4 F H 78 24 H 140/73 H 93 02/14/20 03:18 02/14/20 03:18 02/14/20 03:18 02/14/20 03:18 02/14/20 03:18 - Notes Notes: Vital signs reviewed, please refer to chart. Head is normocephalic, atraumatic. Pupils equal round, reactive to light. Neck is supple without meningismus. Heart is regular rate and rhythm. Lungs are clear to auscultation bilaterally. Abdomen is soft, nontender, normoactive bowel sounds throughout. Extremities without cyanosis, clubbing. Posterior calves are nontender. Peripheral pulses are equal. Skin is warm and dry. Patient is awake, alert, neurological exam is nonfocal. 1 (THIAGO GILBERT) Course - Laboratory Result Diagrams: 02/14/20 05:14 02/14/20 05:14 - Diagnostic Test Radiology reviewed: Image reviewed, Reports reviewed <THIAGO GILBERT - Last Filed: 02/14/20 06:26> - Laboratory Result Diagrams: 02/14/20 05:14 02/14/20 05:14 <ALEX SAN - Last Filed: 02/14/20 08:09> - Re-evaluation Re-evalutation: 02/14/20 06:25 Patient presents the emergency department for evaluation. She is tachypneic, tachycardic, febrile on arrival. She is given Tylenol. Laboratory investigatio ns are ordered. I am still awaiting troponin. She is nonhypoxic when at rest, but she is still tachypneic. Her labs show mild dehydration, 500 cc normal saline bolus ordered. I did order dexamethasone, ferritin, D-dimer, CRP, LDH. At this point, patient is having a significant amount of ectopy on her EKG. She is tachypneic. I do believe she warrants admission. Awaiting troponin, will contact day team for presumed [facility] admission. (THIAGO GILBERT) 02/14/20 08:08 Troponin level came back at 0.020. Notified the hospitalist staff and was instructed that Dr Pennington will be the admitting hospitalist. (ALEX SAN) - Vital Signs Vital signs: Temp Pulse Resp BP Pulse Ox 101.8 F H 78 32 H 124/62 97 02/14/20 06:31 02/14/20 03:18 02/14/20 06:31 02/14/20 06:31 02/14/20 06:31 - Laboratory Laboratory results interpreted by me: 02/14/20 02/14/20 02/14/20 05:14 05:14 05:36 RDW 14.5 H Plt Count 127 L Lymph % (Auto) 10.9 L Seg Neutrophils % 85.0 H D-Dimer Chloride 96 L BUN 26 H Est GFR ( Amer) 53 L Est GFR (MDRD) Non-Af 44 L Glucose 148 H Total Protein 8.6 H Urine Protein 100 H 02/14/20 06:56 RDW Plt Count Lymph % (Auto) Seg Neutrophils % D-Dimer 1.13 H Chloride BUN Est GFR ( Amer) Est GFR (MDRD) Non-Af Glucose Total Protein Urine Protein - Diagnostic Test Radiology results interpreted by me: 02/14/20 06:04 Bilateral peripheral groundglass opacities consistent with COVID-19 infection (THIAGO GILBERT) - EKG Interpretation by Me Additional EKG results interpreted by me: 02/14/20 06:04 Sinus tachycardia with a rate of 117 bpm. Multifocal PVCs, PACs noted. Left axis deviation. Nonspecific ST changes, but no acute changes concerning for ischemia or infarction. (THIAGO GILBERT) Discharge - Discharge Unit Admitted: [facility] <THIAGO GILBERT - Last Filed: 02/14/20 06:26> - Discharge Admitting Provider: Aditi (Hospitalist) <ALEX SAN - Last Filed: 02/14/20 08:09> - Discharge Clinical Impression: COVID-19 Fever Qualifiers: Encounter type: initial encounter Condition: Stable Disposition: ADMITTED INPATIENT Referrals: GAB IRWIN MD [Primary Care Provider] - Follow up as needed
[2020-02-14 06:06] LABS: ALBUMIN 4.3 g/dL (3.5-5.0); ALKALINE PHOSPHATASE 47 U/L (38-126); ANION GAP 15 (5-19); ASPARTATE AMINO TRANSFERASE 30 U/L (14-36); BILIRUBIN,DIRECT 0.2 mg/dL (0.0-0.4); BILIRUBIN,TOTAL 0.6 mg/dL (0.2-1.3); BLOOD UREA NITROGEN 26 mg/dL (7-20); CARBON DIOXIDE 27 mmol/L (22-30); CHLORIDE 96 mmol/L (98-107); GLUCOSE 148 mg/dL (75-110); POTASSIUM 3.8 mmol/L (3.6-5.0); TOTAL PROTEIN 8.6 g/dL (6.3-8.2)
[2020-02-14 06:07] LABS: APPEARANCE,URINE SLIGHTLY-CLOUDY; BILIRUBIN,URINE NEGATIVE (NEGATIVE); COLOR,URINE YELLOW; GLUCOSE, URINE NEGATIVE (NEGATIVE); KETONES,URINE NEGATIVE (NEGATIVE); PROTEIN,URINE 100 mg/dL (NEGATIVE); URINE SPECIFIC GRAVITY 1.019; UROBILINOGEN,URINE NEGATIVE mg/dL (<2.0)
[2020-02-14] MEDS ORDERED: DEXAMETHASONE SOD PHOSPHATE INJ 4 MG/1 ML VIAL IV ONE (06:24)
[2020-02-14] MEDS ORDERED: NORMAL SALINE 500 ML IV ONE (06:25)
[2020-02-14] MEDS ORDERED: MAG HYDROX/AL HYDROX/SIMETH SUSP 30 ML UDCUP PO ONE (07:08)
[2020-02-14] MEDS ORDERED: IBUPROFEN 600 MG TABLET PO ONE (07:08)
[2020-02-14 07:52] LABS: C-REACTIVE PROTEIN 238.6 mg/L (<10.0)
[2020-02-14] MEDS ORDERED: LEVALBUTEROL HCL NEB 1.25 MG/3 ML AMPUL NEB PRN (08:32)
[2020-02-14] MEDS ORDERED: PROMETHAZINE HCL INJ 25 MG/1 ML VIAL IV PRN (08:32)
[2020-02-14] MEDS ORDERED: MAG HYDROX/AL HYDROX/SIMETH SUSP 30 ML UDCUP PO PRN (08:32)
[2020-02-14] MEDS ORDERED: MAGNESIUM HYDROXIDE SUSP 30 ML UDCUP PO PRN (08:32)
--- NOTE | 2020-02-14 09:04 | PDOC H&P ---
History of Present Illness Admission Date/PCP: 02/14/20 08:09 GAB IRWIN Patient complains of: Fever and cough History of Present Illness: JOHNATHAN SALAS is a 74 year old female who sees Dr. Irwin as her PCP. She tested positive for COVID-19 on February 06. Her son has been in [facility] for 2 weeks with Covid pneumonia. She states that approximately 5 to 6 days ago she began to feel poorly. It was primarily fevers followed by a cough. Her chest x-ray reveals bilateral groundglass infiltrates. She has a past medical history of hypertension and type 2 diabetes mellitus. She is quite diaphoretic and tachypneic at this time. She is saturating greater than 90% on room air. She will be admitted to the hospitalist service. The standard treatment regimen for COVID-19 will be implemented. Will monitor closely for possible administration of convalescent plasma or Remdesivir. Past Medical History Cardiac Medical History: Reports: Atrial Fibrillation, Hypertension - medicated Pulmonary Medical History: Reports: Bronchitis Endocrine Medical History: Reports: Diabetes Mellitus Type 2 GI Medical History: Reports: Diverticulitis, Gastroesophageal Reflux Disease Musculoskeltal Medical History: Reports: Arthritis Hematology: Reports: Anemia - no currents meds Denies: Sickle Cell Disease Past Surgical History Past Surgical History: Reports: Cholecystectomy, Other - Partial colectomy for diverticulitis Denies: Amputation Social History Information Source: Patient Lives with: Alone - Smoking Status: Former Smoker Electronic Cigarette use?: No Frequency of Alcohol Use: None Hx Recreational Drug Use: No Hx Prescription Drug Abuse: No - Advance Directive Resuscitation Status: Full Code Surrogate healthcare decision maker:: Her son Tamika Salas Family History Family History: Other - Her son is currently hospitalized at [facility] in the intensive care unit with Covid pneumonia Parental Family History Reviewed: Yes Children Family History Reviewed: Yes Sibling(s) Family History Reviewed.: Yes Medication/Allergy Home Medications: Atenolol [Tenormin 25 mg Tablet] 25 mg PO DAILY 03/09/14 Hydralazine HCl [Apresoline 50 mg Tablet] 100 mg PO TID 03/09/14 Metformin HCl [Glucophage] 1,000 mg PO BIDBS 03/09/14 Clonidine HCl [Catapres 0.2 mg Tablet] 0.1 mg PO QAM 09/17/15 Clonidine HCl [Catapres 0.2 mg Tablet] 0.2 mg PO QHS 09/17/15 Ibuprofen [Ibu] 400 mg PO Q8HP PRN #15 tablet 02/07/20 Diltiazem HCl [Diltiazem 24Hr ER] 240 mg PO DAILY 02/14/20 Hydrochlorothiazide [Hydrodiuril 25 mg Tablet] 25 mg PO DAILY 02/14/20 Losartan Potassium 100 mg PO DAILY 02/14/20 Allergies/Adverse Reactions: Penicillins Allergy (Intermediate, Verified 02/02/17 20:40) itchy rash Review of Systems All systems: reviewed and no additional remarkable complaints except as stated Constitutional: PRESENT: fever(s), other - Diaphoresis Respiratory: PRESENT: cough, dyspnea Physical Exam Vital Signs: Temp Pulse Resp BP Pulse Ox 99.1 F 78 32 H 124/62 97 02/14/20 08:34 02/14/20 03:18 02/14/20 06:31 02/14/20 06:31 02/14/20 06:31 Intake & Output 02/13/20 02/14/20 02/15/20 06:59 06:59 06:59 Weight 94.4 kg General appearance: PRESENT: other - Well-developed 74-year-old female who is quite diaphoretic and in moderate distress Head exam: PRESENT: atraumatic, normocephalic Eye exam: PRESENT: conjunctival injection, EOMI. ABSENT: scleral icterus - 30 sclera Ear exam: PRESENT: normal external ear exam. ABSENT: bleeding, drainage Mouth exam: PRESENT: dry mucosa, tongue midline Neck exam: ABSENT: carotid bruit, JVD, lymphadenopathy Respiratory exam: PRESENT: rhonchi - Fine rhonchi right greater than left, symmetrical, tachypnea. ABSENT: rales, wheezes Cardiovascular exam: PRESENT: +S1, +S2, tachycardia - Occasional irregular beats. ABSENT: bradycardia, diastolic murmur, irregular rhythm, systolic murmur GI/Abdominal exam: PRESENT: normal bowel sounds, soft. ABSENT: distended, guarding, tenderness Rectal exam: PRESENT: deferred Gentrourinary exam: ABSENT: indwelling catheter Extremities exam: ABSENT: calf tenderness, pedal edema Musculoskeletal exam: PRESENT: ambulatory, normal inspection. ABSENT: deformity, dislocation Neurological exam: PRESENT: alert, awake, oriented to person, oriented to place, oriented to situation, CN II-XII grossly intact. ABSENT: altered Psychiatric exam: PRESENT: appropriate affect - Affect reflects her current clinical state. ABSENT: agitated, anxious, unusual affect Focused psych exam: ABSENT: delusional, paranoid, restlessness Skin exam: PRESENT: normal color, other - Diaphoretic Results Laboratory Results: 02/14/20 05:14 02/14/20 05:14 02/14/20 02/14/20 02/14/20 05:14 05:14 05:14 WBC 5.3 RBC 4.14 Hgb 12.1 Hct 36.6 MCV 89 MCH 29.1 MCHC 32.9 RDW 14.5 H Plt Count 127 L Seg Neutrophils % 85.0 H VBG pH 7.40 VBG pCO2 38.7 VBG HCO3 23.2 VBG Base Excess -1.4 Sodium 137.9 Potassium 3.8 Chloride 96 L Carbon Dioxide 27 Anion Gap 15 BUN 26 H Creatinine 1.21 Est GFR ( Amer) 53 L Glucose 148 H Lactic Acid Calcium 9.0 Magnesium 1.6 Ferritin Total Bilirubin 0.6 AST 30 Alkaline Phosphatase 47 C-Reactive Protein Total Protein 8.6 H Albumin 4.3 Urine Color Urine Appearance Urine pH Ur Specific [place] Urine Protein Urine Glucose (UA) Urine Ketones Urine Blood Urine RBC (Auto) 02/14/20 02/14/20 02/14/20 05:14 05:36 06:56 WBC RBC Hgb Hct MCV MCH MCHC RDW Plt Count Seg Neutrophils % VBG pH VBG pCO2 VBG HCO3 VBG Base Excess Sodium Potassium Chloride Carbon Dioxide Anion Gap BUN Creatinine Est GFR ( Amer) Glucose Lactic Acid 1.0 0.8 Calcium Magnesium Ferritin Total Bilirubin AST Alkaline Phosphatase C-Reactive Protein Total Protein Albumin Urine Color YELLOW Urine Appearance SLIGHTLY-CLOUDY Urine pH 5.0 Ur Specific [place] 1.019 Urine Protein 100 H Urine Glucose (UA) NEGATIVE Urine Ketones NEGATIVE Urine Blood NEGATIVE Urine RBC (Auto) 0 02/14/20 06:56 WBC RBC Hgb Hct MCV MCH MCHC RDW Plt Count Seg Neutrophils % VBG pH VBG pCO2 VBG HCO3 VBG Base Excess Sodium Potassium Chloride Carbon Dioxide Anion Gap BUN Creatinine Est GFR ( Amer) Glucose Lactic Acid Calcium Magnesium Ferritin 265.00 H Total Bilirubin AST Alkaline Phosphatase C-Reactive Protein 238.6 H Total Protein Albumin Urine Color Urine Appearance Urine pH Ur Specific [place] Urine Protein Urine Glucose (UA) Urine Ketones Urine Blood Urine RBC (Auto) 02/14/20 05:14 Troponin I 0.020 Assessment and Plan - Diagnosis (1) Pneumonia due to COVID-19 virus Is this a current diagnosis for this admission?: Yes (2) Hyperglycemia due to type 2 diabetes mellitus Is this a current diagnosis for this admission?: Yes (3) Febrile respiratory illness Is this a current diagnosis for this admission?: Yes (4) Hypertension Qualifiers: Hypertension type: essential hypertension Qualified Code(s): I10 - Essential (primary) hypertension Is this a current diagnosis for this admission?: Yes - Plan Summary Summary: (1) Pneumonia due to COVID-19 virus Is this a current diagnosis for this admission?: Yes (2) Hyperglycemia due to type 2 diabetes mellitus Is this a current diagnosis for this admission?: Yes (3) Febrile respiratory illness Is this a current diagnosis for this admission?: Yes (4) Hypertension Qualifiers: Hypertension type: essential hypertension Qualified Code(s): I10 - Essenti al (primary) hypertension Is this a current diagnosis for this admission?: Yes 02/14/2020 COVID-19 pneumonia-the patient will be given ceftriaxone and azithromycin. In addition she received dexamethasone, vitamin D, vitamin C, zinc and melatonin. She will have an inhaler available if needed. Will monitor oxygen requirements and supplement if needed. Hyperglycemia diabetes mellitus type 2-we will hold Metformin at this time. We will institute sliding scale coverage. Will monitor Accu-Cheks and likely add Metformin back. I expect glucose to rise with the use of the dexamethasone. Will monitor and adjust accordingly. Febrile respiratory illness-the patient was quite diuretic. We will use combination of Tylenol, ibuprofen and some IV fluid to help control her temperature. The antibiotics should also start kicking in. Blood cultures have been drawn. Will monitor vital signs. Hypertension-the patient is on significant amount of antihypertensive medi cations. There are some differences between the medication list that the patient provided me from memory and the pharmacies medication reconciliation list. She is on multiple antihypertensive medications and I am adding these based on her blood pressures. We will monitor her vital signs and keep the patient on telemetry. I did speak to the patient's daughter Rashmi ([phone]). Her brother is in the ICU at [facility]. We discussed her mother's condition on admission. I will use Rashmi as the personal support worker for information. - Time Time Spent with patient: 35 or more minutes Medications reviewed and adjusted accordingly: Yes Anticipated Discharge Disposition: Unknown Anticipated Discharge Timeframe: Unknown - Inpatient Certification Based on my medical assessment, after consideration of the patient's comorbidities, presenting symptoms, or acuity I expect that the services needed warrant INPATIENT care.: Yes I certify that my determination is in accordance with my understanding of Medicare's requirements for reasonable and necessary INPATIENT services [42 CFR 412.3e].: Yes Medical Necessity: Significant Comorbidiites Make Outpatient Treatment Too Risky, Need Close Monitoring Due to Risk of Patient Decompensation, Need For IV Fluids, Need For Continuous Telemetry Monitoring, Need for IV Antibiotics Post Hospital Care: D/C or Transfer Summary
[2020-02-14] MEDS ORDERED: AZITHROMYCIN 250 MG TABLET PO ONE (09:30)
[2020-02-14] MEDS: CHOLECALCIFEROL (D3) 1,000 UNIT (25 MCG) TABLET PO SCH (09:45)
[2020-02-14] MEDS: ASCORBIC ACID 500 MG TABLET PO SCH ×2 (09:45→18:02)
[2020-02-14] MEDS: ATENOLOL 50 MG TABLET PO SCH ×2 (09:46→22:02)
[2020-02-14] MEDS: ZINC SULFATE 220 MG CAPSULE PO SCH (09:46)
[2020-02-14] MEDS: ASPIRIN 81 MG TABLET, ENT COATED PO SCH (09:46)
[2020-02-14] MEDS: ENOXAPARIN SODIUM INJ 100 MG/1 ML DISP.SYRIN SUBCUT SCH ×2 (09:46→22:03)
[2020-02-14] MEDS: DILTIAZEM HCL 60 MG TABLET PO SCH (09:46)
[2020-02-14] MEDS: DEXAMETHASONE SOD PHOS INJ 10 MG/1 ML VIAL IV SCH (09:47)
[2020-02-14] MEDS: CEFTRIAXONE 1 GM/D5W RTU 1 GM/50 ML RTUPB IV SCH (09:48)
[2020-02-14] MEDS: RINGERS SOLUTION,LACTATED 1,000 ML IV PRN ×2 (09:49→16:37)
[2020-02-14] MEDS ORDERED: AZITHROMYCIN 250 MG TABLET ONE ×2 (11:39→13:59)
[2020-02-14] MEDS ORDERED: ALBUTEROL SULFATE HFA (90 MCG/PUFF) 8 GM MDI IH PRN (20:27)
[2020-02-14] MEDS ORDERED: IBUPROFEN 400 MG TABLET PO PRN (20:28)
[2020-02-14] MEDS ORDERED: DEXTROSE 40% GEL 15 GM TUBE PO PRN (21:00)
[2020-02-14] MEDS ORDERED: DEXTROSE 50%-WATER SYRINGE 25 GM/50 ML DOSE IV PRN (21:00)
[2020-02-14] MEDS ORDERED: DEXTROSE 40% GEL 15 GM TUBE X 2 PO PRN (21:00)
[2020-02-14] MEDS ORDERED: DEXTROSE 50%-WATER SYRINGE 12.5 GM/25 ML DOSE IV PRN (21:00)
[2020-02-14] MEDS ORDERED: GLUCAGON,HUMAN RECOMB 1 MG INJ IM PRN (21:00)
[2020-02-14] MEDS: CLONIDINE HCL 0.2 MG TABLET PO SCH (22:01)
[2020-02-14] MEDS: INSULIN LISPRO 100 UNIT/ML 3 ML VIAL SUBCUT SCH (22:02)
[2020-02-15] MEDS: RINGERS SOLUTION,LACTATED 1,000 ML IV PRN ×2 (03:45→16:24)
[2020-02-15 06:17] LABS: ANION GAP 9 (5-19); BLOOD UREA NITROGEN 20 mg/dL (7-20); CALCIUM 8.8 mg/dL (8.4-10.2); CARBON DIOXIDE 27 mmol/L (22-30); CHLORIDE 103 mmol/L (98-107); GLUCOSE 139 mg/dL (75-110); POTASSIUM 4.1 mmol/L (3.6-5.0)
[2020-02-15 06:30] LABS: C-REACTIVE PROTEIN 225.5 mg/L (<10.0)
[2020-02-15] MEDS ORDERED: INFLUENZA QUAD (6MOS+) 2020-21 VAC 0.5 ML SYR IM ONE (08:00)
--- NOTE | 2020-02-15 09:23 | EKG REPORT ---
SEVERITY:- ABNORMAL ECG - SINUS TACHYCARDIA FREQUENT VENTRICULAR PREMATURE COMPLEXES BORDERLINE LEFT AXIS DEVIATION : Confirmed by: Karina Taylor 15-Feb-2020 09:22:41
[2020-02-15] MEDS ORDERED: DILTIAZEM HCL 240 MG CAPSULE.CR PO SCH (10:00)
[2020-02-15] MEDS ORDERED: (PENDING PHARMACY ID) (Diltiazem Hcl [Diltiazem 24hr Er] 240 MG) PO SCH (10:00)
[2020-02-15] MEDS: INSULIN LISPRO 100 UNIT/ML 3 ML VIAL SUBCUT SCH ×4 (10:04→21:39)
[2020-02-15] MEDS: DILTIAZEM HCL 60 MG TABLET PO SCH (10:10)
[2020-02-15] MEDS: AZITHROMYCIN 250 MG TABLET PO SCH (10:17)
[2020-02-15] MEDS: ASPIRIN 81 MG TABLET, ENT COATED PO SCH (10:17)
[2020-02-15] MEDS: ZINC SULFATE 220 MG CAPSULE PO SCH (10:17)
[2020-02-15] MEDS: ENOXAPARIN SODIUM INJ 100 MG/1 ML DISP.SYRIN SUBCUT SCH (10:17)
[2020-02-15] MEDS: ASCORBIC ACID 500 MG TABLET PO SCH ×2 (10:17→17:42)
[2020-02-15] MEDS: CEFTRIAXONE 1 GM/D5W RTU 1 GM/50 ML RTUPB IV SCH (10:17)
[2020-02-15] MEDS: ATENOLOL 50 MG TABLET PO SCH ×2 (10:17→21:38)
[2020-02-15] MEDS: CHOLECALCIFEROL (D3) 1,000 UNIT (25 MCG) TABLET PO SCH (10:17)
[2020-02-15] MEDS: CLONIDINE HCL 0.1 MG TABLET PO SCH (10:18)
[2020-02-15] MEDS: DEXAMETHASONE SOD PHOS INJ 10 MG/1 ML VIAL IV SCH (10:19)
[2020-02-15] MEDS: ACETAMINOPHEN 325 MG TABLET PO PRN (11:44)
[2020-02-15] MEDS: DEXAMETHASONE SOD PHOSPHATE INJ 4 MG/1 ML VIAL IV SCH (11:44)
--- NOTE | 2020-02-15 13:43 | PDOC PROGRESS REPORT ---
Subjective Date:: 02/15/20 Subjective:: Patient is sitting up in the chair. She is now on nasal cannula but in fact loo ks much better than yesterday. She is no longer diaphoretic. Reason For Visit: COVID-19, PNEUMONIA,HYPEGLYDEMIA DIABETES MELLITUS Physical Exam Vital Signs: Temp Pulse Resp BP Pulse Ox 100.9 F H 73 16 164/87 H 87 L 02/15/20 12:40 02/15/20 11:12 02/15/20 07:39 02/15/20 11:12 02/15/20 11:12 Intake & Output 02/14/20 02/15/20 02/16/20 06:59 06:59 06:59 Intake Total 2400 250 Balance 2400 250 Weight 94.4 kg 90.8 kg General appearance: PRESENT: no acute distress, cooperative, well-developed Head exam: PRESENT: atraumatic, normocephalic Ear exam: PRESENT: normal external ear exam. ABSENT: bleeding, drainage Mouth exam: PRESENT: moist, tongue midline Respiratory exam: PRESENT: prolonged expiratory phas, rhonchi - Faint rhonchi persist on the right, symmetrical, unlabored. ABSENT: rales, tachypnea, wheezes Cardiovascular exam: PRESENT: RRR, +S1, +S2. ABSENT: bradycardia, diastolic murmur, irregular rhythm, systolic murmur, tachycardia GI/Abdominal exam: PRESENT: normal bowel sounds, soft. ABSENT: distended, guarding, tenderness Rectal exam: PRESENT: deferred Gentrourinary exam: ABSENT: indwelling catheter Extremities exam: PRESENT: full ROM. ABSENT: pedal edema Musculoskeletal exam: PRESENT: ambulatory, normal inspection. ABSENT: deformity, dislocation Neurological exam: PRESENT: alert, awake, oriented to person, oriented to place, oriented to time, oriented to situation, CN II-XII grossly intact. ABSENT: altered Psychiatric exam: PRESENT: appropriate affect, normal mood. ABSENT: agitated, anxious Focused psych exam: ABSENT: delusional, paranoid, restlessness Skin exam: PRESENT: dry - No diaphoresis, normal color, warm. ABSENT: rash Results Laboratory Results: 02/14/20 05:14 02/15/20 04:57 02/15/20 04:57 Sodium 139.1 Potassium 4.1 Chloride 103 Carbon Dioxide 27 Anion Gap 9 BUN 20 Creatinine 0.76 Est GFR ( Amer) > 60 Glucose 139 H Calcium 8.8 Magnesium 1.8 C-Reactive Protein 225.5 H 02/14/20 05:14 Troponin I 0.020 Assessment and Plan - Diagnosis (1) Pneumonia due to COVID-19 virus Is this a current diagnosis for this admission?: Yes (2) Hyperglycemia due to type 2 diabetes mellitus Is this a current diagnosis for this admission?: Yes (3) Febrile respiratory illness Is this a current diagnosis for this admission?: Yes (4) Hypertension Qualifiers: Hypertension type: essential hypertension Qualified Code(s): I10 - Essential (primary) hypertension Is this a current diagnosis for this admission?: Yes - Plan Summary Summary: (1) Pneumonia due to COVID-19 virus Is this a current diagnosis for this admission?: Yes (2) Hyperglycemia due to type 2 diabetes mellitus Is this a current diagnosis for this admission?: Yes (3) Febrile respiratory illness Is this a current diagnosis for this admission?: Yes (4) Hypertension Qualifiers: Hypertension type: essential hypertension Qualified Code(s): I10 - Essential (primary) hypertension Is this a current diagnosis for this admission?: Yes 02/14/2020 COVID-19 pneumonia-the patient will be given ceftriaxone and azithromycin. In addition she received dexamethasone, vitamin D, vitamin C, zinc and melatonin. She will have an inhaler available if needed. Will monitor oxygen requirements and supplement if needed. Hyperglycemia diabetes mellitus type 2-we will hold Metformin at this time. We will institute sliding scale coverage. Will monitor Accu-Cheks and likely add Metformin back. I expect glucose to rise with the use of the dexamethasone. Will monitor and adjust accordingly. Febrile respiratory illness-the patient was quite diuretic. We will use combination of Tylenol, ibuprofen and some IV fluid to help control her temperature. The antibiotics should also start kicking in. Blood cultures have been drawn. Will monitor vital signs. Hypertension-the patient is on significant amount of antihypertensive medications. There are some differences between the medication list that the patient provided me from memory and the pharmacies medication reconciliation list. She is on multiple antihypertensive medications and I am adding these based on her blood pressures. We will monitor her vital signs and keep the patient on telemetry. I did speak to the patient's daughter Rashmi ([phone]). Her brother is in the ICU at [facility]. We discussed her mother's condition on admission. I will use Rashmi as the contact center agent for information. 02/15/2020 Covid pneumonia-the patient is now on nasal cannula oxygen. I encouraged the use of the incentive spirometer. She was not markedly hypoxic. We are continuing the dexamethasone. She has a rescue inhaler. She is on supplements as well as azithromycin and ceftriaxone. Diabetes-the patient's hemoglobin A1c was 6.5 which is excellent. I will continue the sliding scale and continue her Metformin. Hypertension-I have added back the patient's Hyzaar (losartan and hydrochlorothiazide). She is on the atenolol and clonidine as well as her diltiazem. I will see what her blood pressure does with the addition of the Hyzaar and then consider adding her hydralazine back based on her vital signs. Fever-the patient did spike a fever again today. She is not diaphoretic. She was grossly diuretic yesterday. Despite the fever she states she is feeling better. We will continue her current regimen and monitor her closely. - Time Time Spent with patient: 15-24 minutes Medications reviewed and adjusted accordingly: Yes Anticipated Discharge Disposition: Home, Self Care Anticipated Discharge Timeframe: Hopefully within 3 to 4 days
[2020-02-15] MEDS ORDERED: ENOXAPARIN SODIUM INJ 40 MG/0.4 ML DISP.SYRIN SUBCUT SCH (15:00)
[2020-02-15] MEDS: METFORMIN HCL 500 MG TABLET PO SCH ×2 (17:43→23:12)
[2020-02-15] MEDS: CLONIDINE HCL 0.2 MG TABLET PO SCH (21:38)
[2020-02-15] MEDS ORDERED: METOPROLOL TARTRATE PF/INJ 5 MG/5 ML SDV IV ONE (22:30)
[2020-02-15] MEDS ORDERED: DILTIAZEM HCL INJ 25 MG/5 ML VIAL ONE (23:16)
[2020-02-15] MEDS ORDERED: DILTIAZEM HCL INJ 25 MG/5 ML VIAL IV ONE (23:59)
[2020-02-16] MEDS: DILTIAZEM HCL/D5W 125 MG/125 ML RTUINJ IV PRN ×3 (03:30→20:13)
[2020-02-16] MEDS: ACETAMINOPHEN 325 MG TABLET PO PRN (03:32)
[2020-02-16] MEDS ORDERED: DILTIAZEM HCL INJ 25 MG/5 ML VIAL IV ONE (03:53)
[2020-02-16] MEDS ORDERED: DILTIAZEM HCL INJ 25 MG/5 ML VIAL ONE (03:57)
[2020-02-16] MEDS ORDERED: METOPROLOL TARTRATE PF/INJ 5 MG/5 ML SDV IV PRN (04:05)
[2020-02-16] MEDS: METFORMIN HCL 500 MG TABLET PO SCH ×3 (05:00→17:17)
[2020-02-16] MEDS ORDERED: NORMAL SALINE 1000 ML 1,000 ML IV ONE (06:22)
[2020-02-16 07:09] LABS: ARTERIAL BLOOD BASE EXCESS -2.1 mmol/L; ARTERIAL BLOOD H2CO3 1.06 mmol/L (1.05-1.35); ARTERIAL BLOOD O2 SATURATION 84.6 % (94-98); ARTERIAL BLOOD PCO2 35.3 mmHg (35-45); ARTERIAL BLOOD PH 7.41 (7.35-7.45); ARTERIAL BLOOD TOTAL CO2 23.1 mmol/L (21-25)
[2020-02-16 07:23] LABS: ARTERIAL BLOOD FIO2 45%
[2020-02-16 07:53] LABS: ANION GAP 9 (5-19); BLOOD UREA NITROGEN 15 mg/dL (7-20); CALCIUM 8.1 mg/dL (8.4-10.2); CARBON DIOXIDE 26 mmol/L (22-30); CHLORIDE 103 mmol/L (98-107); GLUCOSE 155 mg/dL (75-110); POTASSIUM 3.7 mmol/L (3.6-5.0)
[2020-02-16] MEDS: CLONIDINE HCL 0.1 MG TABLET PO SCH (08:15)
[2020-02-16] MEDS: INSULIN LISPRO 100 UNIT/ML 3 ML VIAL SUBCUT SCH ×4 (08:30→22:56)
--- NOTE | 2020-02-16 09:08 | EKG REPORT ---
SEVERITY:- OTHERWISE NORMAL ECG - SINUS RHYTHM BORDERLINE LEFT AXIS DEVIATION : Confirmed by: Karina Taylor 16-Feb-2020 09:06:40
--- NOTE | 2020-02-16 09:08 | EKG REPORT ---
SEVERITY:- ABNORMAL ECG - SINUS RHYTHM VENTRICULAR ECTOPICS LVH BY VOLTAGE : Confirmed by: Karina Taylor 16-Feb-2020 09:07:50
--- NOTE | 2020-02-16 09:49 | PDOC PROGRESS REPORT ---
Subjective Date:: 02/16/20 Subjective:: The patient had a very difficult night. Her oxygen requirements increased signi ficantly. She also was having issues with atrial fibrillation with rapid ventricular response as well as short nonsustained bursts of V. tach. This morning she is on a high flow nasal cannula at 75%. She required diltiazem infusion. She also developed low blood pressures. Reason For Visit: COVID-19, PNEUMONIA,HYPEGLYDEMIA DIABETES MELLITUS Physical Exam Vital Signs: Temp Pulse Resp BP Pulse Ox 98.6 F 105 H 18 116/65 90 L 02/16/20 08:52 02/16/20 08:01 02/16/20 08:01 02/16/20 08:01 02/16/20 08:01 Intake & Output 02/15/20 02/16/20 02/17/20 06:59 06:59 06:59 Intake Total 2400 3089 Balance 2400 3089 Weight 90.8 kg 93.6 kg General appearance: PRESENT: cooperative, well-nourished, other - Well-developed 74-year-old female in moderate distress Head exam: PRESENT: atraumatic, normocephalic Eye exam: PRESENT: conjunctiva pink. ABSENT: scleral icterus Ear exam: PRESENT: normal external ear exam. ABSENT: bleeding, drainage Mouth exam: PRESENT: moist, tongue midline Neck exam: ABSENT: carotid bruit, JVD, lymphadenopathy Respiratory exam: PRESENT: prolonged expiratory phas, rhonchi - Mostly on the right, symmetrical, tachypnea. ABSENT: accessory muscle use, rales, wheezes Cardiovascular exam: PRESENT: irregular rhythm. ABSENT: diastolic murmur, systo lic murmur, tachycardia GI/Abdominal exam: PRESENT: normal bowel sounds, soft. ABSENT: distended, guarding, tenderness Rectal exam: PRESENT: deferred Gentrourinary exam: ABSENT: indwelling catheter Extremities exam: ABSENT: calf tenderness, pedal edema Musculoskeletal exam: PRESENT: ambulatory, normal inspection. ABSENT: deformity, dislocation Neurological exam: PRESENT: alert, awake, oriented to person, oriented to place, oriented to time, oriented to situation, CN II-XII grossly intact. ABSENT: altered Psychiatric exam: PRESENT: anxious. ABSENT: agitated Focused psych exam: ABSENT: delusional, paranoid, restlessness Skin exam: PRESENT: dry, normal color, warm. ABSENT: rash Results Laboratory Results: 02/14/20 05:14 02/16/20 07:14 02/16/20 02/16/20 06:46 07:14 Carbonic Acid 1.06 HCO3/H2CO3 Ratio 20:1 ABG pH 7.41 ABG pCO2 35.3 ABG pO2 48.0 L ABG HCO3 22.0 ABG O2 Saturation 84.6 L ABG Base Excess -2.1 FiO2 45% Sodium 137.9 Potassium 3.7 Chloride 103 Carbon Dioxide 26 Anion Gap 9 BUN 15 Creatinine 0.79 Est GFR ( Amer) > 60 Glucose 155 H Calcium 8.1 L Magnesium 1.4 L 02/14/20 05:14 Troponin I 0.020 Assessment and Plan - Diagnosis (1) Pneumonia due to COVID-19 virus Is this a current diagnosis for this admission?: Yes (2) Atrial fibrillation with rapid ventricular response Is this a current diagnosis for this admission?: Yes (3) Longstanding persistent atrial fibrillation Is this a current diagnosis for this admission?: Yes (4) Hyperglycemia due to type 2 diabetes mellitus Qualifiers: Diabetes mellitus predatory animal exterminator insulin use: without predatory animal exterminator use Qualified Code(s): E11.65 - Type 2 diabetes mellitus with hyperglycemia Is this a current diagnosis for this admission?: Yes (5) Hypertension Qualifiers: Hypertension type: essential hypertension Qualified Code(s): I10 - Essential (primary) hypertension Is this a current diagnosis for this admission?: Yes (6) Febrile respiratory illness Is this a current diagnosis for this admission?: Yes - Plan Summary Summary: (1) Pneumonia due to COVID-19 virus Is this a current diagnosis for this admission?: Yes (2) Hyperglycemia due to type 2 diabetes mellitus Is this a current diagnosis for this admission?: Yes (3) Febrile respiratory illness Is this a current diagnosis for this admission?: Yes (4) Hypertension Qualifiers: Hypertension type: essential hypertension Qualified Code(s): I10 - Essential (primary) hypertension Is this a current diagnosis for this admission?: Yes (5) Atrial fibrillation with rapid ventricular response Is this a current diagnosis for this admission?: Yes (6) Longstanding persistent atrial fibrillation Is this a current diagnosis for this admission?: Yes 02/14/2020 COVID-19 pneumonia-the patient will be given ceftriaxone and azithromycin. In addition she received dexamethasone, vitamin D, vitamin C, zinc and melatonin. She will have an inhaler available if needed. Will monitor oxygen requirements and supplement if needed. Hyperglycemia diabetes mellitus type 2-we will hold Metformin at this time. We will institute sliding scale coverage. Will monitor Accu-Cheks and likely add Metformin back. I expect glucose to rise with the use of the dexamethasone. Will monitor and adjust accordingly. Febrile respiratory illness-the patient was quite diuretic. We will use c ombination of Tylenol, ibuprofen and some IV fluid to help control her temperature. The antibiotics should also start kicking in. Blood cultures have been drawn. Will monitor vital signs. Hypertension-the patient is on significant amount of antihypertensive medications. There are some differences between the medication list that the patient provided me from memory and the pharmacies medication reconciliation list. She is on multiple antihypertensive medications and I am adding these based on her blood pressures. We will monitor her vital signs and keep the patient on telemetry. I did speak to the patient's daughter Rashmi ([phone]). Her brother is in the ICU at [facility]. We discussed her mother's condition on admission. I will use Rashmi as the dice table person for information. 02/15/2020 Covid pneumonia-the patient is now on nasal cannula oxygen. I encouraged the use of the incentive spirometer. She was not markedly hypoxic. We are continuing the dexamethasone. She has a rescue inhaler. She is on supplements as well as azithromycin and ceftriaxone. Diabetes-the patient's hemoglobin A1c was 6.5 which is excellent. I will continue the sliding scale and continue her Metformin. Hypertension-I have added back the patient's Hyzaar (losartan and hydrochlor othiazide). She is on the atenolol and clonidine as well as her diltiazem. I will see what her blood pressure does with the addition of the Hyzaar and then consider adding her hydralazine back based on her vital signs. Fever-the patient did spike a fever again today. She is not diaphoretic. She was grossly diuretic yesterday. Despite the fever she states she is feeling better. We will continue her current regimen and monitor her closely. 02/16/2020 Covid pneumonia-the patient is now requiring high flow nasal cannula at 75%. This may also be related to the cardiac issues she experienced. I am also going to add 10 mg of montelukast at night to possibly help with her respiratory status. Albuterol inhaler is available. Because of her acute change in respiratory status as well as the uncontrolled fibrillation I have requested Remdesivir from pharmacy. Hypertension-blood pressure is actually low with the arrhythmia. She is on a diltiazem infusion at 15 mg an hour. I am going to hold the oral diltiazem as well as the Hyzaar, hydralazine and clonidine. The atenolol will also be held. Diabetes-continue current regimen. Reasonable blood glucose control. We will need to monitor with the IV steroids. Atrial fibrillation with rapid ventricular response-the patient was not on an anticoagulant at the time of admission. I did call her daughter Rashmi. It is possible that when she had a diverticular bleed in the past they stopped the anticoagulant. She is currently on therapeutic Lovenox with the initially elevated D-dimer. In light of last night's events she will be discharged on an anticoagulant. This morning she is back in sinus rhythm but will need to monitor very closely. It is likely that the COVID-19 virus is contributing to this exacerbation of her arrhythmia. - Time Time Spent with patient: 25-34 minutes Medications reviewed and adjusted accordingly: Yes Anticipated Discharge Disposition: Unknown Anticipated Discharge Timeframe: Unknown
[2020-02-16] MEDS: LOSARTAN POTASSIUM 50 MG TABLET PO SCH (09:51)
[2020-02-16] MEDS ORDERED: HYDROCHLOROTHIAZIDE 25 MG TABLET PO SCH (10:00)
[2020-02-16] MEDS ORDERED: (PENDING PHARMACY ID) (Losartan Potassium [Losartan Potassium] 100 MG) PO SCH (10:00)
[2020-02-16] MEDS: ASCORBIC ACID 500 MG TABLET PO SCH ×2 (10:01→17:11)
[2020-02-16] MEDS: CEFTRIAXONE 1 GM/D5W RTU 1 GM/50 ML RTUPB IV SCH (10:01)
[2020-02-16] MEDS: ZINC SULFATE 220 MG CAPSULE PO SCH (10:01)
[2020-02-16] MEDS: AZITHROMYCIN 250 MG TABLET PO SCH (10:01)
[2020-02-16] MEDS: ASPIRIN 81 MG TABLET, ENT COATED PO SCH (10:01)
[2020-02-16] MEDS: CHOLECALCIFEROL (D3) 1,000 UNIT (25 MCG) TABLET PO SCH (10:01)
[2020-02-16] MEDS: DEXAMETHASONE SOD PHOSPHATE INJ 4 MG/1 ML VIAL IV SCH (10:02)
[2020-02-16] MEDS: ENOXAPARIN SODIUM INJ 100 MG/1 ML DISP.SYRIN SUBCUT SCH ×2 (10:02→22:55)
[2020-02-16] MEDS: MAGNESIUM OXIDE 400 MG TABLET PO SCH ×2 (10:16→17:17)
[2020-02-16] MEDS: MAGNESIUM SULFATE/D5W 1 GM/100 ML RTUPB IV SCH ×2 (11:07→12:09)
[2020-02-16] MEDS ORDERED: REMDESIVIR 200 MG in NORMAL SALINE 250 ML IV ONE (12:00)
[2020-02-16 13:06] LABS: ARTERIAL BLOOD BASE EXCESS 1.8 mmol/L; ARTERIAL BLOOD H2CO3 1.13 mmol/L (1.05-1.35); ARTERIAL BLOOD HCO3 25.7 mmol/L (20-24); ARTERIAL BLOOD O2 SATURATION 80.9 % (94-98); ARTERIAL BLOOD PCO2 37.6 mmHg (35-45); ARTERIAL BLOOD PH 7.45 (7.35-7.45); ARTERIAL BLOOD PO2 42.6 mmHg (80-100); ARTERIAL BLOOD TOTAL CO2 26.8 mmol/L (21-25)
[2020-02-16 13:38] LABS: ARTERIAL BLOOD FIO2 85%
[2020-02-16] MEDS ORDERED: FUROSEMIDE INJ/PF 20 MG/2 ML SDV ONE (15:44)
[2020-02-16] MEDS ORDERED: FUROSEMIDE INJ/PF 20 MG/2 ML SDV IV ONE (16:00)
--- NOTE | 2020-02-16 16:36 | RADIOLOGY REPORT (SQ) ---
EXAM DESCRIPTION: CHEST SINGLE VIEW IMAGES COMPLETED DATE/TIME: 02/16/2020 4:25 pm REASON FOR STUDY: desaturation COMPARISON: 02/14/2020 EXAM PARAMETERS: NUMBER OF VIEWS: One view. TECHNIQUE: Single frontal radiographic view of the chest acquired. RADIATION DOSE: NA LIMITATIONS: None. FINDINGS: LUNGS AND PLEURA: Today's examination demonstrates progression in multifocal airspace opac ities with mild relative sparing of the left upper lobe. No discrete pleural effusion. No pneumotho rax. MEDIASTINUM AND HILAR STRUCTURES: No masses. Contour normal. HEART AND VASCULAR STRUCTURES: Heart normal in size. Normal vasculature. BONES: No acute findings. HARDWARE: None in the chest. OTHER: No other significant finding. IMPRESSION: Interval worsening of multi lobar pneumonia. TECHNICAL DOCUMENTATION: JOB ID: [id number] [employer]- All Rights Reserved Reading location - IP/workstation name: [email or web address]
[2020-02-16] MEDS: MONTELUKAST SODIUM 10 MG TABLET PO SCH (22:55)
[2020-02-17] MEDS: METFORMIN HCL 500 MG TABLET PO SCH ×4 (00:35→17:11)
[2020-02-17] MEDS: DILTIAZEM HCL/D5W 125 MG/125 ML RTUINJ IV PRN ×2 (06:12→19:51)
[2020-02-17 06:36] LABS: ABSOLUTE LYMPHOCYTES (AUTO) 0.6 10^3/uL (0.5-4.7); ABSOLUTE MONOCYTES (AUTO) 0.2 10^3/uL (0.1-1.4); ABSOLUTE NEUT (AUTO) 8.1 10^3/uL (1.7-8.2); BASOPHILS % (AUTO) 0.2 % (0-2); HEMATOCRIT 36.5 % (36.0-47.0); HEMOGLOBIN 12.2 g/dL (12.0-15.5); LYMPHOCYTES % (AUTO) 6.5 % (13-45); MEAN CORPUSCULAR HEMOGLOBIN 29.4 pg (27.0-33.4); MEAN CORPUSCULAR HGB CONC 33.4 g/dL (32.0-36.0); MEAN CORPUSCULAR VOLUME 88 fl (80-97); MONOCYTES % (AUTO) 2.7 % (3-13); PLATELET COUNT 237 10^3/uL (150-450); RED BLOOD COUNT 4.15 10^6/uL (3.72-5.28); RED CELL DISTRIBUTION WIDTH 14.3 % (11.5-14.0); SEGMENTED NEUTROPHILS % (AUTO) 90.6 % (42-78); TOTAL CELLS COUNTED % (AUTO) 100 %; WHITE BLOOD COUNT 8.9 10^3/uL (4.0-10.5)
[2020-02-17 07:10] LABS: ANION GAP 11 (5-19); BLOOD UREA NITROGEN 17 mg/dL (7-20); CALCIUM 8.4 mg/dL (8.4-10.2); CARBON DIOXIDE 28 mmol/L (22-30); CHLORIDE 100 mmol/L (98-107); GLUCOSE 132 mg/dL (75-110); POTASSIUM 3.8 mmol/L (3.6-5.0)
--- NOTE | 2020-02-17 08:10 | PDOC CONSULTATION ---
Consultation Consult Date: 02/17/20 Attending physician:: QUINN BARRIOS Provider Consulted: ZEE SANTANA Consult reason:: A-fib History of Present Illness Admission Date/PCP: 02/14/20 08:09 GAB IRWIN History of Present Illness: JOHNATHAN SALAS is a 74 year old female with history of paroxysmal atrial fibrillation, hypertension, Type II DM, GERD and anemia who is consulted to our service for further evaluation and treatment of PAF. The patient was admitted on 02/14/20 with COVID pneumonia and since then has had bouts of rapid a-fib that has been treated with IV diltiazem. Unfortunately her COVID pneumonia has worsened to the point a rapid response team was called yesterday afternoon for respiratory distress and low O2 sats. She was begun on BiPap with good response. This morning she denies cardiac complaints. She continues to be on a diltiazem drip with a controlled heart rate. Her telemetry shows A-fib with controlled HR, no sustained ventricular dysrhythmias noted. Physical exam on 02/17/20: GA: resting in bed comfortably and without distress. Alert and Ox3. On Bipap. HEENT: normocephalic, moist oral mucosa, no JVD. HEART: irregular rate and rhythm, no murmurs, no gallops. LUNGS: CTA bilaterally. LE: no edema, no cyanosis. NEURO: grossly normal. Past Medical History Cardiac Medical History: Reports: Atrial Fibrillation, Hypertension - medicated Pulmonary Medical History: Reports: Bronchitis Endocrine Medical History: Reports: Diabetes Mellitus Type 2 GI Medical History: Reports: Diverticulitis, Gastroesophageal Reflux Disease Musculoskeltal Medical History: Reports: Arthritis Psychiatric Medical History: Reports: Depression Hematology: Reports: Anemia - no currents meds Denies: Sickle Cell Disease Past Surgical History Past Surgical History: Reports: Cholecystectomy, Other - Partial colectomy for diverticulitis Denies: Amputation Social History Lives with: Alone - Smoking Status: Former Smoker Electronic Cigarette use?: No Frequency of Alcohol Use: None Hx Recreational Drug Use: No Drugs: None Hx Prescription Drug Abuse: No - Advance Directive Resuscitation Status: Full Code Family History Family History: Other - Her son is currently hospitalized at [facility] in the intensive care unit with Covid pneumonia Parental Family History Reviewed: Yes Children Family History Reviewed: Yes Sibling(s) Family History Reviewed.: Yes Medication/Allergy Home Medications: Atenolol [Tenormin 25 mg Tablet] 25 mg PO DAILY 03/09/14 Hydralazine HCl [Apresoline 50 mg Tablet] 100 mg PO TID 03/09/14 Metformin HCl [Glucophage] 1,000 mg PO BIDBS 03/09/14 Clonidine HCl [Catapres 0.2 mg Tablet] 0.1 mg PO QAM 09/17/15 Clonidine HCl [Catapres 0.2 mg Tablet] 0.2 mg PO QHS 09/17/15 Ibuprofen [Ibu] 400 mg PO Q8HP PRN #15 tablet 02/07/20 Diltiazem HCl [Diltiazem 24Hr ER] 240 mg PO DAILY 02/14/20 Hydrochlorothiazide [Hydrodiuril 25 mg Tablet] 25 mg PO DAILY 02/14/20 Losartan Potassium 100 mg PO DAILY 02/14/20 Allergies/Adverse Reactions: Penicillins Allergy (Intermediate, Verified 02/02/17 20:40) itchy rash Physical Exam Vital Signs: Temp Pulse Resp BP Pulse Ox 99.3 F 83 29 H 132/91 H 97 02/16/20 23:28 02/17/20 06:00 02/17/20 03:34 02/17/20 06:00 02/17/20 03:34 Intake & Output 02/15/20 02/16/20 02/17/20 06:59 06:59 06:59 Intake Total 2400 3089 1321 Output Total 875 Balance 2400 3089 446 Weight 90.8 kg 93.6 kg 91.2 kg Results Laboratory Results: 02/17/20 05:56 02/16/20 02/16/20 02/16/20 06:46 07:14 12:40 WBC RBC Hgb Hct MCV MCH MCHC RDW Plt Count Seg Neutrophils % Carbonic Acid 1.06 1.13 HCO3/H2CO3 Ratio 20:1 22:1 ABG pH 7.41 7.45 ABG pCO2 35.3 37.6 ABG pO2 48.0 L 42.6 L ABG HCO3 22.0 25.7 H ABG O2 Saturation 84.6 L 80.9 L ABG Base Excess -2.1 1.8 FiO2 45% 85% Sodium 137.9 Potassium 3.7 Chloride 103 Carbon Dioxide 26 Anion Gap 9 BUN 15 Creatinine 0.79 Est GFR ( Amer) > 60 Glucose 155 H Calcium 8.1 L Magnesium 1.4 L 02/17/20 05:56 WBC 8.9 RBC 4.15 Hgb 12.2 Hct 36.5 MCV 88 MCH 29.4 MCHC 33.4 RDW 14.3 H Plt Count 237 Seg Neutrophils % 90.6 H Carbonic Acid HCO3/H2CO3 Ratio ABG pH ABG pCO2 ABG pO2 ABG HCO3 ABG O2 Saturation ABG Base Excess FiO2 Sodium Potassium Chloride Carbon Dioxide Anion Gap BUN Creatinine Est GFR ( Amer) Glucose Calcium Magnesium 02/14/20 05:14 Troponin I 0.020 Impressions: Chest X-Ray 02/16/20 00:00 IMPRESSION: Interval worsening of multi lobar pneumonia. 02/17/20 05:56 02/17/20 05:56 MCV 88 fl (80-97) 02/17/20 05:56 MCH 29.4 pg (27.0-33.4) 02/17/20 05:56 MCHC 33.4 g/dL (32.0-36.0) 02/17/20 05:56 RDW 14.3 % (11.5-14.0) H 02/17/20 05:56 Seg Neutrophils % 90.6 % (42-78) H 02/17/20 05:56 Carbonic Acid 1.13 mmol/L (1.05-1.35) 02/16/20 12:40 HCO3/H2CO3 Ratio 22:1 02/16/20 12:40 ABG pH 7.45 (7.35-7.45) 02/16/20 12:40 ABG pCO2 37.6 mmHg (35-45) 02/16/20 12:40 ABG pO2 42.6 mmHg (80-100) L 02/16/20 12:40 ABG HCO3 25.7 mmol/L (20-24) H 02/16/20 12:40 ABG O2 Saturation 80.9 % (94-98) L 02/16/20 12:40 ABG Base Excess 1.8 mmol/L 02/16/20 12:40 VBG pH 7.40 (7.30-7.42) 02/14/20 05:14 VBG pCO2 38.7 mmHg (35-63) 02/14/20 05:14 VBG HCO3 23.2 mmol/L (20-32) 02/14/20 05:14 VBG Base Excess -1.4 mmol/L 02/14/20 05:14 FiO2 85% 02/16/20 12:40 Chloride 100 mmol/L (98-107) 02/17/20 05:56 Carbon Dioxide 28 mmol/L (22-30) 02/17/20 05:56 Anion Gap 11 (5-19) 02/17/20 05:56 Est GFR ( Amer) > 60 (>60) 02/17/20 05:56 Glucose 132 mg/dL (75-110) H 02/17/20 05:56 Lactic Acid 0.8 mmol/L (0.7-2.1) 02/14/20 11:06 Calcium 8.4 mg/dL (8.4-10.2) 02/17/20 05:56 Magnesium 1.9 mg/dL (1.6-2.3) 02/17/20 05:56 Ferritin 265.00 ng/mL (11.1-264.0) H 02/14/20 06:56 Total Bilirubin 0.6 mg/dL (0.2-1.3) 02/14/20 05:14 AST 30 U/L (14-36) 02/14/20 05:14 Alkaline Phosphatase 47 U/L (38-126) 02/14/20 05:14 C-Reactive Protein 225.5 mg/L (<10.0) H 02/15/20 04:57 Total Protein 8.6 g/dL (6.3-8.2) H 02/14/20 05:14 Albumin 4.3 g/dL (3.5-5.0) 02/14/20 05:14 Urine Color YELLOW 02/14/20 05:36 Urine Appearance SLIGHTLY-CLOUDY 02/14/20 05:36 Urine pH 5.0 (5.0-9.0) 02/14/20 05:36 Ur Specific [place] 1.019 02/14/20 05:36 Urine Protein 100 mg/dL (NEGATIVE) H 02/14/20 05:36 Urine Glucose (UA) NEGATIVE mg/dL (NEGATIVE) 02/14/20 05:36 Urine Ketones NEGATIVE mg/dL (NEGATIVE) 02/14/20 05:36 Urine Blood NEGATIVE (NEGATIVE) 02/14/20 05:36 Urine RBC (Auto) 0 /HPF 02/14/20 05:36 02/14/20 05:14 Troponin I 0.020 Current Medication List Generic Name Dose Route Start Last Admin Trade Name [place] PRN Reason Stop Dose Admin Acetaminophen 650 mg 02/14/20 08:32 02/16/20 03:32 Tylenol 325 Mg Tablet PO 03/15/20 08:31 650 mg Q4HP PRN Administration FOR PAIN OR TEMP Al Hydrox/Mg Hydrox/Simethicone 15 ml 02/14/20 08:32 Maalox Plus Susp 30 Udcup PO 03/15/20 08:31 Q6HP PRN HEARTBURN Albuterol 2 puff 02/14/20 20:27 Ventolin Hfa 8 Gm Mdi IH 03/15/20 20:26 Q4HP PRN FOR WHEEZING Ascorbic Acid 500 mg 02/14/20 10:00 02/16/20 17:11 Vitamin C 500 Mg Tablet PO 03/15/20 09:59 Not Given BID LAURA Aspirin 81 mg 02/14/20 10:00 02/16/20 10:01 Ecotrin 81 Mg Ec Tablet PO 03/15/20 09:59 81 mg DAILY LAURA Administration Azithromycin 250 mg 02/15/20 10:00 02/16/20 10:01 Zithromax 250 Mg Tablet PO 02/22/20 09:59 250 mg DAILY LAURA Administration Cholecalciferol 2,000 unit 02/14/20 10:00 02/16/20 10:01 Vitamin D3 1000 Unit Tablet PO 03/15/20 09:59 2,000 unit DAILY LAURA Administration Dexamethasone Sodium Phosphate 6 mg 02/15/20 11:00 02/16/20 10:02 Decadron Inj 4 Mg/Ml Vial IV 03/16/20 10:59 6 mg DAILY LAURA Administration Dextrose 12.5 gm 02/14/20 21:00 Dextrose Inj 50% Syringe (25 Gm/50 Ml) IV 03/15/20 20:59 PRN PRN FOR BG 50-69 IN ALERT PATIENT Protocol Dextrose 25 gm 02/14/20 21:00 Dextrose Inj 50% Syringe (25 Gm/50 Ml) IV 03/15/20 20:59 PRN PRN Protocol Enoxaparin Sodium 95 mg 02/16/20 10:00 02/16/20 22:55 Lovenox Inj 100 Mg/1 Ml Disp.Syrin SUBCUT 03/17/20 09:59 95 mg Q12 LAURA Administration Glucagon 1 mg 02/14/20 21:00 Glucagen Inj 1 Mg Vial IM 03/15/20 20:59 PRN PRN EVALUATE FOR BG < 70 Protocol Glucose 15 gm 02/14/20 21:00 Glutose 40% Gel 15 Gm Tube PO 03/15/20 20:59 PRN PRN FOR BG 50-69 IN ALERT PATIENT Protocol Glucose 30 gm 02/14/20 21:00 Glutose 40% Gel 15 Gm Tube PO 03/15/20 20:59 PRN PRN FOR BG < 50 IN ALERT PATIENT Protocol Ceftriaxone Sodium/Dextrose 1 gm in 50 mls @ 100 mls/hr 02/14/20 10:00 02/16/20 10:36 Rocephin Rtu 1 Gm/D5w 50 Ml Premix IV 02/21/20 09:59 Infused DAILY LAURA Infusion Diltiazem HCl 125 mg in 125 mls @ 0 mls/hr 02/16/20 00:06 02/17/20 06:12 Cardizem Rtu Inj 125 Mg-D5w 125 Ml Premix IV 03/17/20 00:05 10 mls/hr CONTINUOUS PRN 10 mls/hr THIS MED IS NOT "PRN" Administration Protocol Titrate Remdesivir 100 mg/ Sodium 250 mls @ 250 mls/hr 02/17/20 10:00 Chloride IV 02/20/20 10:59 DAILY LAURA Ibuprofen 400 mg 02/14/20 20:28 02/16/20 04:12 Motrin 400 Mg Tablet PO 03/15/20 20:27 400 mg Q8HP PRN Administration FOR BREAKTHROUGH PAIN Insulin Human Lispro 0 - 12 unit 02/14/20 22:00 02/16/20 22:56 Humalog Insulin 100 Unit/1 Ml 3 Ml Vial SUBCUT 03/15/20 21:59 Not Given ACHS LAURA Protocol Losartan Potassium 100 mg 02/16/20 10:00 02/16/20 09:51 Cozaar 50 Mg Tablet PO 03/17/20 09:59 Not Given DAILY LAURA Magnesium Hydroxide 30 ml 02/14/20 08:32 Milk Of Magnesia 30 Ml Udcup PO 03/15/20 08:31 DAILYP PRN FOR CONSTIPATION Magnesium Oxide 400 mg 02/16/20 10:00 02/16/20 17:17 Mag-Ox 400 Mg Tablet PO 03/17/20 09:59 Not Given BID LAURA Metformin HCl 500 mg 02/15/20 18:00 02/17/20 06:12 Glucophage 500 Mg Tablet PO 03/16/20 17:59 500 mg Q6 LAURA Administration Metoprolol Tartrate 5 mg 02/16/20 04:05 Lopressor Inj/Pf 5 Mg/5 Ml Sdv IV 03/17/20 04:04 Q6HP PRN FOR SUSTAINED HR >120 Montelukast Sodium 10 mg 02/16/20 22:00 02/16/20 22:55 Singulair 10 Mg Tablet PO 03/17/20 21:59 10 mg QHS LAURA Administration Promethazine HCl 12.5 mg 02/14/20 08:32 Phenergan Inj 25 Mg/1 Ml Vial IV 03/15/20 08:31 Q4HP PRN FOR NAUSEA/VOMITING Sodium Chloride 2.5 ml 02/14/20 14:00 02/17/20 06:12 Saline Flush 2.5 Ml Monoject Prefil Syrin IV 03/15/20 13:59 2.5 ml Q8 LAURA Administration Zinc Sulfate 220 mg 02/14/20 10:00 02/16/20 10:01 Zinc-220 Capsule PO 03/15/20 09:59 220 mg DAILY LAURA Administration Discontinued Medications Generic Name Dose Route Start Last Admin Trade Name Freq PRN Reason Stop Dose Admin Acetaminophen 975 mg 02/14/20 03:52 02/14/20 04:51 Tylenol 325 Mg Tablet PO 02/14/20 03:53 975 mg NOW ONE Administration Al Hydrox/Mg Hydrox/Simethicone 15 ml 02/14/20 07:08 02/14/20 07:13 Maalox Plus Susp 30 Udcup PO 02/14/20 07:09 15 ml NOW ONE Administration Atenolol 50 mg 02/14/20 10:00 02/15/20 21:38 Tenormin 50 Mg Tablet PO 03/15/20 09:59 50 mg Q12 LAURA Administration Azithromycin 500 mg 02/14/20 09:30 02/14/20 11:42 Zithromax 250 Mg Tablet PO 02/14/20 09:31 500 mg NOW ONE Administration Azithromycin Confirm 02/14/20 11:39 02/14/20 14:03 Zithromax 250 Mg Tablet Administered 02/14/20 11:40 250 mg Dose Administration 250 mg .ROUTE .STK-MED ONE Azithromycin Confirm 02/14/20 13:59 02/14/20 14:08 Zithromax 250 Mg Tablet Administered 02/14/20 14:00 Not Given Dose 250 mg .ROUTE .STK-MED ONE Clonidine 0.1 mg 02/15/20 08:00 02/16/20 08:15 Catapres 0.1 Mg Tablet PO 03/16/20 07:59 Not Given QAM LAURA Clonidine 0.2 mg 02/14/20 22:00 02/15/20 21:38 Catapres 0.2 Mg Tablet PO 03/15/20 21:59 0.2 mg QHS LAURA Administration Dexamethasone Sodium Phosphate 6 mg 02/14/20 06:24 02/14/20 06:45 Decadron Inj 4 Mg/Ml Vial IV 02/14/20 06:25 6 mg IVBAG (ED) ONE Administration Dexamethasone Sodium Phosphate 6 mg 02/14/20 10:00 02/15/20 10:19 Decadron Inj 10 Mg/1 Ml Vial IV 03/15/20 09:59 Not Given DAILY LAURA Diltiazem HCl 60 mg 02/14/20 10:00 02/15/20 10:10 Cardizem 60 Mg Tablet PO 03/15/20 09:59 Not Given DAILY LAURA Diltiazem HCl 240 mg 02/15/20 10:00 02/15/20 10:17 Cardizem Cd 240 Mg Capsule.Cr PO 03/16/20 09:59 240 mg DAILY LAURA Administration Diltiazem HCl Confirm 02/15/20 23:16 02/15/20 23:48 Cardizem Inj 25 Mg/5 Ml Vial Administered 02/15/20 23:17 Not Given Dose 25 mg .ROUTE .STK-MED ONE Diltiazem HCl 20 mg 02/15/20 23:59 02/15/20 23:20 Cardizem Inj 25 Mg/5 Ml Vial IV 02/16/20 00:00 20 mg NOW ONE Administration Diltiazem HCl 20 mg 02/16/20 03:53 02/16/20 04:00 Cardizem Inj 25 Mg/5 Ml Vial IV 02/16/20 03:54 20 mg NOW ONE Administration Diltiazem HCl Confirm 02/16/20 03:57 02/16/20 04:20 Cardizem Inj 25 Mg/5 Ml Vial Administered 02/16/20 03:58 Not Given Dose 25 mg .ROUTE .STK-MED ONE Enoxaparin Sodium 90 mg 02/14/20 10:00 02/15/20 10:17 Lovenox Inj 100 Mg/1 Ml Disp.Syrin SUBCUT 03/15/20 09:59 90 mg Q12 LAURA Administration Enoxaparin Sodium 40 mg 02/15/20 15:00 02/15/20 14:15 Lovenox Inj 40 Mg/0.4 Ml Disp.Syrin SUBCUT 03/16/20 14:59 Not Given DAILY LAURA Furosemide 20 mg 02/16/20 16:00 02/16/20 16:19 Lasix Inj/Pf 20 Mg/2 Ml Sdv IV 02/16/20 16:01 Not Given NOW ONE Furosemide Confirm 02/16/20 15:44 02/16/20 15:49 Lasix Inj/Pf 20 Mg/2 Ml Sdv Administered 02/16/20 15:45 20 mg Dose Administration 20 mg .ROUTE .STK-MED ONE Hydrochlorothiazide 25 mg 02/16/20 10:00 Hydrodiuril 25 Mg Tablet PO 03/17/20 09:59 DAILY LAURA Sodium Chloride 500 mls @ 0 mls/hr 02/14/20 06:25 02/14/20 07:44 Nacl 0.9% 500 Ml Iv Soln IV 02/14/20 06:26 Infused NOW ONE Infusion Wide Open Lactated Ringer's 1,000 mls @ 125 mls/hr 02/14/20 08:32 02/15/20 23:20 Lactated Ringers 1000 Ml Iv Soln IV 03/15/20 08:31 Infused CONTINUOUS PRN Infusion THIS MED IS NOT "PRN" Sodium Chloride 1,000 mls @ 0 mls/hr 02/16/20 06:22 02/16/20 06:40 Nacl 0.9% 1000 Ml Iv Soln IV 02/16/20 06:23 Infused BOLUS ONE Infusion Wide Open Magnesium Sulfate/Dextrose 1 gm in 100 mls @ 100 mls/hr 02/16/20 11:00 02/16/20 13:13 Magnesium Sulfate Rtu-D5w 1 Gm/100 Ml Premix IV 02/16/20 12:59 Infused Q1H LAURA Infusion Remdesivir 200 mg/ Sodium 250 mls @ 250 mls/hr 02/16/20 12:00 02/16/20 15:06 Chloride IV 02/16/20 12:59 Infused NOW ONE Infusion Ibuprofen 800 mg 02/14/20 07:08 02/14/20 07:14 Motrin 600 Mg Tablet PO 02/14/20 07:09 800 mg NOW ONE Administration Influenza Virus Vaccine Quadrival 0.5 ml 02/15/20 08:00 Flulaval Quad Vac 0.5 Ml Syr IM 02/15/20 08:01 .ONCE ONE Levalbuterol HCl 1.25 mg 02/14/20 08:32 Xopenex Neb 1.25 Mg/3 Ml Ampul NEB 03/15/20 08:31 RTQ4HP PRN SHORTNESS OF BREATH Metoprolol Tartrate 5 mg 02/15/20 22:30 02/15/20 22:17 Lopressor Inj/Pf 5 Mg/5 Ml Sdv IV 02/15/20 22:31 5 mg NOW ONE Administration Assessment & Plan - Diagnosis (1) Atrial fibrillation with rapid ventricular response Is this a current diagnosis for this admission?: Yes Plan: The patient is currently stable from the cardiovascular standpoint and on a diltiazem dripp with a controlled heart rate. Unfortunately she did require BiP ap due to worsening COVID pneumonia which is actually the driver guide of her dysrhythmia. I do not expect any improvement in her dysrhythmia until her pneumonia improves or resolves and, as a matter of fact, it may worsen. RECOMMENDATIONS: -Continue to treat the underlying pneumonia. -Continue with anticoagulation. -Cardiology does not have further recommendations therefore we will sign off the case for now. Please reconsult if clinically indicated.
--- OUTSIDE RECORDS SUMMARY | 2020-02-17 08:52 | XMS REPORT ---
:1945 Author Organization [facility] Address [address] [place] [address] Care Team Providers Name Role Phone Unavailable Unavailable Unavailable Allergies, Adverse Reactions, Alerts Allergy Name Allergy Status Severity Reaction(s) Onset Inactive Treat ing Comments Type Date Date Clinician Penicillins Allergy to Active substance Medications Ordered Filled Start Stop Current Ordering Indication Dosage Frequency Signature Comments Components Medication Medication Date Date Medication? Clinician (SIG) Name Name diltiazem No diltiazem CD 240 mg CD 240 mg capsule,ext capsule,ex ended tended release 24 release 24 hr take one hr take tablet one tablet every day every day hydralazine No hydralazin 100 mg e 100 mg tablet take tablet one tablet take one three times tablet a day three times a day hydrocortis No hydrocorti one sone valerate valerate 0.2 % 0.2 % topical topical cream Apply cream by topical Apply by route for topical 90 days. route for 90 days. lidocaine 5 No lidocaine % topical 5 % ointment topical Apply 2-3 ointment grams Apply 2-3 topically grams to affected topically area 3-4 to times per affected day area 3-4 times per day losartan No losartan 100 100 mg-hydrochl mg-hydroch orothiazide lorothiazi 25 mg de 25 mg tablet take tablet one tablet take one everyday tablet everyday metformin No metformin 1,000 mg 1,000 mg tablet take tablet one tablet take one three times tablet a day three times a day omega-3 No 1capsul Q1D omega-3 acid ethyl e(s) acid ethyl esters 1 esters 1 gram gram capsule capsule Take 1 Take 1 capsule capsule every day every day by oral by oral route for route for 90 days. 90 days. pantoprazol No 1 Q1D pantoprazo e 40 mg le 40 mg tablet,yaya tablet,del yed release ayed Take 1 release tablet Take 1 every day tablet by oral every day route for by oral 30 days. route for 30 days. atenolol 50 No 1 Q1D atenolol mg tablet 50 mg Take 1 tablet tablet Take 1 every day tablet by oral every day route for by oral 90 days. route for 90 days. calcipotrie No calcipotri ne 0.005 % em 0.005 topical % topical cream Apply cream 1-2 grams Apply 1-2 topically grams to affected topically area 1-2 to times per affected day. Do Not area 1-2 Apply to times per Face. (QS day. Do to 90 day Not Apply supply for to Face. a total of (QS to 90 360g) day supply for a total of 360g) clonidine No clonidine HCl 0.2 mg HCl 0.2 mg tablet take tablet one tablet take one three times tablet a day three times a day Problems Condition Condition Condition Status Onset Resolution Last Treatin g Comments Name Details Category Date Date Treatment Clinician Date Anemia Anemia Problem Active 4 00:00: 00 Varicose Varicose Problem Active veins of Veins of 07-02 lower Lower 00:00: extremity Extremity 00 Pain in Pain in Problem Active right hip Right Hip 05-30 joint Joint 00:00: 00 Diabetes Diabetes Problem Active 2016-04 mellitus Mellitus 2 00:00: 00 Hypertensiv Hypertensiv Problem Active 2016-04 e disorder e Disorder 2 00:00: 00 Diverticuli Diverticuli Problem Active 2016-04 tis tis 2 00:00: 00 Heart Heart Problem Active 2016-04 murmur Murmur 05-14 00:00: 00 Procedures Procedure Date / Time Performed Performing Clinician Vanita wong Gallbladder Surgery Results This patient has no known results. Assessments Condition Name Status Diagnosis Date Treating Clinici an Varicose veins of lower extremity Active 2018-07-02 14: 09:14 Encounters Start End Encounter Admission Attending Care Care Encounter Date/Time Date/Time Type Type Clinicians Facility Department ID 2018-07-02 2018-07-02 Amando Martinez [id number] 00:00:00 00:00:00 Back: Surgical Surgical [id number] [facility], [address], [place] [address] , Ph. Immunizations Ordered Immunization Filled Immunization Date Status Commen ts Refusal Reason Name Name influenza, 2017-05-30 Completed injectable, 00:00:00 quadrivalent Social History Smoking Status Start Date Stop Date Former Smoker Vital Signs Vital Name Observation Time Observation Value Comments Height 2018-07-02 00:00:00 67 [in_i] Hospital Discharge Instructions 1. Varicose veins of lower extremity compression pantyhose 20-30 mmHg Discussion Note: None recorded. Patient educational handouts: No information available.
[2020-02-17] MEDS: INSULIN LISPRO 100 UNIT/ML 3 ML VIAL SUBCUT SCH ×4 (08:56→22:37)
--- NOTE | 2020-02-17 10:24 | PDOC PROGRESS REPORT ---
Subjective Date:: 02/17/20 Subjective:: Patient is still quite tachypneic on BiPAP. Unable to remove mask for any significant amount of time for the patient to have a meal. Reason For Visit: COVID-19, PNEUMONIA,HYPEGLYDEMIA DIABETES MELLITUS Physical Exam Vital Signs: Temp Pulse Resp BP Pulse Ox 98.5 F 56 L 20 122/88 H 91 L 02/17/20 08:11 02/17/20 08:11 02/17/20 08:11 02/17/20 08:11 02/17/20 08:11 Intake & Output 02/16/20 02/17/20 02/18/20 06:59 06:59 06:59 Intake Total 3089 1321 Output Total 875 Balance 3089 446 Weight 93.6 kg 91.2 kg General appearance: PRESENT: mild distress, well-developed, other - BiPAP mask in place Head exam: PRESENT: atraumatic, normocephalic Ear exam: PRESENT: normal external ear exam. ABSENT: bleeding, drainage Respiratory exam: PRESENT: rales, tachypnea. ABSENT: rhonchi, wheezes Cardiovascular exam: PRESENT: irregular rhythm. ABSENT: bradycardia, diastolic murmur, systolic murmur, tachycardia GI/Abdominal exam: PRESENT: normal bowel sounds, soft. ABSENT: tenderness Rectal exam: PRESENT: deferred Gentrourinary exam: PRESENT: indwelling catheter Extremities exam: ABSENT: pedal edema Neurological exam: PRESENT: alert, awake, oriented to person, oriented to place, oriented to time, oriented to situation, CN II-XII grossly intact. ABSENT: altered Psychiatric exam: PRESENT: appropriate affect - Affect reflects her current clinical state. ABSENT: agitated, anxious Results Laboratory Results: 02/17/20 05:56 02/17/20 05:56 02/16/20 02/17/20 02/17/20 12:40 05:56 05:56 WBC 8.9 RBC 4.15 Hgb 12.2 Hct 36.5 MCV 88 MCH 29.4 MCHC 33.4 RDW 14.3 H Plt Count 237 Seg Neutrophils % 90.6 H Carbonic Acid 1.13 HCO3/H2CO3 Ratio 22:1 ABG pH 7.45 ABG pCO2 37.6 ABG pO2 42.6 L ABG HCO3 25.7 H ABG O2 Saturation 80.9 L ABG Base Excess 1.8 FiO2 85% Sodium 139.3 Potassium 3.8 Chloride 100 Carbon Dioxide 28 Anion Gap 11 BUN 17 Creatinine 0.72 Est GFR ( Amer) > 60 Glucose 132 H Calcium 8.4 Magnesium 1.9 02/14/20 05:14 Troponin I 0.020 Impressions: Chest X-Ray 02/16/20 00:00 IMPRESSION: Interval worsening of multi lobar pneumonia. Assessment and Plan - Diagnosis (1) Pneumonia due to COVID-19 virus Is this a current diagnosis for this admission?: Yes (2) Atrial fibrillation with rapid ventricular response Is this a current diagnosis for this admission?: Yes (3) Longstanding persistent atrial fibrillation Is this a current diagnosis for this admission?: Yes (4) Hyperglycemia due to type 2 diabetes mellitus Qualifiers: Diabetes mellitus terminal make up operator insulin use: without terminal make up operator use Qualified Code(s): E11.65 - Type 2 diabetes mellitus with hyperglycemia Is this a current diagnosis for this admission?: Yes (5) Hypertension Qualifiers: Hypertension type: essential hypertension Qualified Code(s): I10 - Essential (primary) hypertension Is this a current diagnosis for this admission?: Yes (6) Febrile respiratory illness Is this a current diagnosis for this admission?: Yes - Plan Summary Summary: (1) Pneumonia due to COVID-19 virus Is this a current diagnosis for this admission?: Yes (2) Hyperglycemia due to type 2 diabetes mellitus Is this a current diagnosis for this admission?: Yes (3) Febrile respiratory illness Is this a current diagnosis for this admission?: Yes (4) Hypertension Qualifiers: Hypertension type: essential hypertension Qualified Code(s): I10 - Essential (primary) hypertension Is this a current diagnosis for this admission?: Yes (5) Atrial fibrillation with rapid ventricular response Is this a current diagnosis for this admission?: Yes (6) Longstanding persistent atrial fibrillation Is this a current diagnosis for this admission?: Yes 02/14/2020 COVID-19 pneumonia-the patient will be given ceftriaxone and azithromycin. In addition she received dexamethasone, vitamin D, vitamin C, zinc and melatonin. She will have an inhaler available if needed. Will monitor oxygen requirements and supplement if needed. Hyperglycemia diabetes mellitus type 2-we will hold Metformin at this time. We will institute sliding scale coverage. Will monitor Accu-Cheks and likely add Metformin back. I expect glucose to rise with the use of the dexamethasone. Will monitor and adjust accordingly. Febrile respiratory illness-the patient was quite diuretic. We will use combination of Tylenol, ibuprofen and some IV fluid to help control her temperature. The antibiotics should also start kicking in. Blood cultures have been drawn. Will monitor vital signs. Hypertension-the patient is on significant amount of antihypertensive medications. There are some differences between the medication list that the patient provided me from memory and the pharmacies medication reconciliation list. She is on multiple antihypertensive medications and I am adding these based on her blood pressures. We will monitor her vital signs and keep the patient on telemetry. I did speak to the patient's daughter Rashmi ([phone]). Her brother is in the ICU at [facility]. We discussed her mother's condition on admission. I will use Rashmi as the contact center rep for information. 02/15/2020 Covid pneumonia-the patient is now on nasal cannula oxygen. I encouraged the use of the incentive spirometer. She was not markedly hypoxic. We are continuing the dexamethasone. She has a rescue inhaler. She is on supplements as well as azithromycin and ceftriaxone. Diabetes-the patient's hemoglobin A1c was 6.5 which is excellent. I will continue the sliding scale and continue her Metformin. Hypertension-I have added back the patient's Hyzaar (losartan and hydrochlorothiazide). She is on the atenolol and clonidine as well as her diltiazem. I will see what her blood pressure does with the addition of the Hyzaar and then consider adding her hydralazine back based on her vital signs. Fever-the patient did spike a fever again today. She is not diaphoretic. She was grossly diuretic yesterday. Despite the fever she states she is feeling better. We will continue her current regimen and monitor her closely. 02/16/2020 Covid pneumonia-the patient is now requiring high flow nasal cannula at 75%. This may also be related to the cardiac issues she experienced. I am also going to add 10 mg of montelukast at night to possibly help with her respiratory status. Albuterol inhaler is available. Because of her acute change in respiratory status as well as the uncontrolled fibrillation I have requested Remdesivir from pharmacy. Hypertension-blood pressure is actually low with the arrhythmia. She is on a diltiazem infusion at 15 mg an hour. I am going to hold the oral diltiazem as well as the Hyzaar, hydralazine and clonidine. The atenolol will also be held. Diabetes-continue current regimen. Reasonable blood glucose control. We will need to monitor with the IV steroids. Atrial fibrillation with rapid ventricular response-the patient was not on an anticoagulant at the time of admission. I did call her daughter Rashmi. It is possible that when she had a diverticular bleed in the past they stopped the anticoagulant. She is currently on therapeutic Lovenox with the initially elevated D-dimer. In light of last night's events she will be discharged on an anticoagulant. This morning she is back in sinus rhythm but will need to monitor very closely. It is likely that the COVID-19 virus is contributing to this exacerbation of her arrhythmia. 02/17/2020 Unfortunately patient is mostly BiPAP dependent. Trying to slowly transition to see if CPAP helps. I am decreasing the expiratory pressure. Will monitor closely. Appreciate cardiology input. The most efficient plan is to continue managing atrial fibrillation with diltiazem infusion. If the patient becomes more stable then we will switch back to oral medications. Diabetes-continue Accu-Cheks and sliding scale. Continue full-strength Lovenox at this time. Remdesivir is being administered. Still very ill. Will need close monitoring. - Time Time Spent with patient: 15-24 minutes Medications reviewed and adjusted accordingly: Yes Anticipated Discharge Disposition: Unknown Anticipated Discharge Timeframe: Unknown
[2020-02-17 10:48] LABS: APPEARANCE,URINE SLIGHTLY-CLOUDY; BILIRUBIN,URINE NEGATIVE (NEGATIVE); COLOR,URINE YELLOW; GLUCOSE, URINE 50 mg/dL (NEGATIVE); KETONES,URINE 20 mg/dL (NEGATIVE); LEUKOCYTE ESTERASE,URINE NEGATIVE (NEGATIVE); NITRITE,URINE NEGATIVE (NEGATIVE); PROTEIN,URINE >=500 mg/dL (NEGATIVE); URINE SPECIFIC GRAVITY 1.025; UROBILINOGEN,URINE NEGATIVE mg/dL (<2.0)
[2020-02-17] MEDS: ENOXAPARIN SODIUM INJ 100 MG/1 ML DISP.SYRIN SUBCUT SCH ×2 (11:30→22:39)
[2020-02-17] MEDS: ASPIRIN 81 MG TABLET, ENT COATED PO SCH (11:31)
[2020-02-17] MEDS: LOSARTAN POTASSIUM 50 MG TABLET PO SCH (11:32)
[2020-02-17] MEDS: ZINC SULFATE 220 MG CAPSULE PO SCH (11:33)
[2020-02-17] MEDS: CHOLECALCIFEROL (D3) 1,000 UNIT (25 MCG) TABLET PO SCH (11:33)
[2020-02-17] MEDS: ASCORBIC ACID 500 MG TABLET PO SCH ×2 (11:33→17:11)
[2020-02-17] MEDS: DEXAMETHASONE SOD PHOSPHATE INJ 4 MG/1 ML VIAL IV SCH (11:33)
[2020-02-17] MEDS: AZITHROMYCIN 250 MG TABLET PO SCH (11:35)
[2020-02-17] MEDS: CEFTRIAXONE 1 GM/D5W RTU 1 GM/50 ML RTUPB IV SCH (11:35)
[2020-02-17] MEDS: MAGNESIUM OXIDE 400 MG TABLET PO SCH ×2 (11:35→17:11)
[2020-02-17] MEDS: REMDESIVIR 100 MG in NORMAL SALINE 250 ML IV SCH (13:15)
[2020-02-17] MEDS: MONTELUKAST SODIUM 10 MG TABLET PO SCH (22:40)
[2020-02-18] MEDS: METFORMIN HCL 500 MG TABLET PO SCH ×4 (00:57→17:33)
[2020-02-18] MEDS: INSULIN LISPRO 100 UNIT/ML 3 ML VIAL SUBCUT SCH ×4 (08:01→22:03)
[2020-02-18] MEDS: DILTIAZEM HCL/D5W 125 MG/125 ML RTUINJ IV PRN ×2 (08:01→20:10)
[2020-02-18 08:56] LABS: ANION GAP 10 (5-19); BLOOD UREA NITROGEN 22 mg/dL (7-20); CALCIUM 8.8 mg/dL (8.4-10.2); CARBON DIOXIDE 30 mmol/L (22-30); CHLORIDE 101 mmol/L (98-107); GLUCOSE 184 mg/dL (75-110)
[2020-02-18] MEDS: MAGNESIUM OXIDE 400 MG TABLET PO SCH ×2 (10:18→17:33)
[2020-02-18] MEDS: DEXAMETHASONE SOD PHOSPHATE INJ 4 MG/1 ML VIAL IV SCH (10:18)
[2020-02-18] MEDS: AZITHROMYCIN 250 MG TABLET PO SCH (10:18)
[2020-02-18] MEDS: ASPIRIN 81 MG TABLET, ENT COATED PO SCH (10:18)
[2020-02-18] MEDS: LOSARTAN POTASSIUM 50 MG TABLET PO SCH (10:18)
[2020-02-18] MEDS: REMDESIVIR 100 MG in NORMAL SALINE 250 ML IV SCH (10:19)
[2020-02-18] MEDS: CEFTRIAXONE 1 GM/D5W RTU 1 GM/50 ML RTUPB IV SCH (10:19)
[2020-02-18] MEDS: CHOLECALCIFEROL (D3) 1,000 UNIT (25 MCG) TABLET PO SCH (10:19)
[2020-02-18] MEDS: ASCORBIC ACID 500 MG TABLET PO SCH ×2 (10:19→17:33)
[2020-02-18] MEDS: ZINC SULFATE 220 MG CAPSULE PO SCH (10:19)
[2020-02-18] MEDS: ENOXAPARIN SODIUM INJ 100 MG/1 ML DISP.SYRIN SUBCUT SCH ×2 (10:20→23:13)
--- NOTE | 2020-02-18 17:03 | PDOC PROGRESS REPORT ---
Subjective Date:: 02/18/20 Subjective:: The patient is holding steady and on her BiPAP with an FiO2 of 65% she is able t o take small windows on nasal cannula so that she can eat. Reason For Visit: COVID-19, PNEUMONIA,HYPEGLYDEMIA DIABETES MELLITUS Physical Exam Vital Signs: Temp Pulse Resp BP Pulse Ox 97.6 F 108 H 35 H 129/101 H 96 02/18/20 08:43 02/18/20 15:00 02/18/20 16:24 02/18/20 15:00 02/18/20 16:24 Intake & Output 02/17/20 02/18/20 02/19/20 06:59 06:59 06:59 Intake Total 1321 969 542 Output Total 875 1000 Balance 446 -31 542 Weight 91.2 kg 90 kg General appearance: PRESENT: cooperative, mild distress, well-developed, other - BiPAP mask in place Head exam: PRESENT: atraumatic, normocephalic Ear exam: PRESENT: normal external ear exam. ABSENT: bleeding, drainage Respiratory exam: PRESENT: rales - Left base, symmetrical, tachypnea. ABSENT: rhonchi, wheezes GI/Abdominal exam: PRESENT: normal bowel sounds, soft. ABSENT: tenderness Rectal exam: PRESENT: deferred Gentrourinary exam: PRESENT: indwelling catheter Extremities exam: ABSENT: pedal edema Musculoskeletal exam: PRESENT: normal inspection. ABSENT: deformity, dislocation Neurological exam: PRESENT: alert, awake, oriented to person, oriented to place, oriented to time, oriented to situation, CN II-XII grossly intact. ABSENT: altered Psychiatric exam: PRESENT: appropriate affect. ABSENT: agitated, anxious Focused psych exam: ABSENT: delusional, paranoid, restlessness Results Laboratory Results: 02/17/20 05:56 02/18/20 08:15 02/18/20 02/18/20 05:10 08:15 Sodium Cancelled 141.2 Potassium Cancelled 4.0 Chloride Cancelled 101 Carbon Dioxide Cancelled 30 Anion Gap Cancelled 10 BUN Cancelled 22 H Creatinine Cancelled 0.72 Est GFR ( Amer) Cancelled > 60 Est GFR (Non-Af Amer) Cancelled Glucose Cancelled 184 H Calcium Cancelled 8.8 Magnesium Cancelled 2.2 02/14/20 05:14 Troponin I 0.020 Impressions: Chest X-Ray 02/16/20 00:00 IMPRESSION: Interval worsening of multi lobar pneumonia. Assessment and Plan - Diagnosis (1) Pneumonia due to COVID-19 virus Is this a current diagnosis for this admission?: Yes (2) Atrial fibrillation with rapid ventricular response Is this a current diagnosis for this admission?: Yes (3) Longstanding persistent atrial fibrillation Is this a current diagnosis for this admission?: Yes (4) Hyperglycemia due to type 2 diabetes mellitus Qualifiers: Diabetes mellitus alf insulin use: without long term care pharmacist use Qualified Code(s): E11.65 - Type 2 diabetes mellitus with hyperglycemia Is this a current diagnosis for this admission?: Yes (5) Hypertension Qualifiers: Hypertension type: essential hypertension Qualified Code(s): I10 - Essential (primary) hypertension Is this a current diagnosis for this admission?: Yes (6) Febrile respiratory illness Is this a current diagnosis for this admission?: Yes - Plan Summary Summary: (1) Pneumonia due to COVID-19 virus Is this a current diagnosis for this admission?: Yes (2) Hyperglycemia due to type 2 diabetes mellitus Is this a current diagnosis for this admission?: Yes (3) Febrile respiratory illness Is this a current diagnosis for this admission?: Yes (4) Hypertension Qualifiers: Hypertension type: essential hypertension Qualified Code(s): I10 - Essential (primary) hypertension Is this a current diagnosis for this admission?: Yes (5) Atrial fibrillation with rapid ventricular response Is this a current diagnosis for this admission?: Yes (6) Longstanding persistent atrial fibrillation Is this a current diagnosis for this admission?: Yes 02/14/2020 COVID-19 pneumonia-the patient will be given ceftriaxone and azithromycin. In addition she received dexamethasone, vitamin D, vitamin C, zinc and melatonin. She will have an inhaler available if needed. Will monitor oxygen requirements and supplement if needed. Hyperglycemia diabetes mellitus type 2-we will hold Metformin at this time. We will institute sliding scale coverage. Will monitor Accu-Cheks and likely add Metformin back. I expect glucose to rise with the use of the dexamethasone. Will monitor and adjust accordingly. Febrile respiratory illness-the patient was quite diuretic. We will use combination of Tylenol, ibuprofen and some IV fluid to help control her temperature. The antibiotics should also start kicking in. Blood cultures have been drawn. Will monitor vital signs. Hypertension-the patient is on significant amount of antihypertensive medications. There are some differences between the medication list that the patient provided me from memory and the pharmacies medication reconciliation list. She is on multiple antihypertensive medications and I am adding these based on her blood pressures. We will monitor her vital signs and keep the patient on telemetry. I did speak to the patient's daughter Rashmi ([phone]). Her brother is in the ICU at [facility]. We discussed her mother's condition on admission. I will use Rashmi as the customer contact specialist for information. 02/15/2020 Covid pneumonia-the patient is now on nasal cannula oxygen. I encouraged the use of the incentive spirometer. She was not markedly hypoxic. We are continuing the dexamethasone. She has a rescue inhaler. She is on supplements as well as azithromycin and ceftriaxone. Diabetes-the patient's hemoglobin A1c was 6.5 which is excellent. I will continue the sliding scale and continue her Metformin. Hypertension-I have added back the patient's Hyzaar (losartan and hydrochlorothiazide). She is on the atenolol and clonidine as well as her diltiazem. I will see what her blood pressure does with the addition of the Hyzaar and then consider adding her hydralazine back based on her vital signs. Fever-the patient did spike a fever again today. She is not diaphoretic. She was grossly diuretic yesterday. Despite the fever she states she is feeling better. We will continue her current regimen and monitor her closely. 02/16/2020 Covid pneumonia-the patient is now requiring high flow nasal cannula at 75%. This may also be related to the cardiac issues she experienced. I am also going to add 10 mg of montelukast at night to possibly help with her respiratory status. Albuterol inhaler is available. Because of her acute change in respiratory status as well as the uncontrolled fibrillation I have requested Remdesivir from pharmacy. Hypertension-blood pressure is actually low with the arrhythmia. She is on a diltiazem infusion at 15 mg an hour. I am going to hold the oral diltiazem as well as the Hyzaar, hydralazine and clonidine. The atenolol will also be held. Diabetes-continue current regimen. Reasonable blood glucose control. We will need to monitor with the IV steroids. Atrial fibrillation with rapid ventricular response-the patient was not on an anticoagulant at the time of admission. I did call her daughter Rashmi. It is possible that when she had a diverticular bleed in the past they stopped the anticoagulant. She is currently on therapeutic Lovenox with the initially elevated D-dimer. In light of last night's events she will be discharged on an anticoagulant. This morning she is back in sinus rhythm but will need to monitor very closely. It is likely that the COVID-19 virus is contributing to this exacerbation of her arrhythmia. 02/17/2020 Unfortunately patient is mostly BiPAP dependent. Trying to slowly transition to see if CPAP helps. I am decreasing the expiratory pressure. Will monitor closely. Appreciate cardiology input. The most efficient plan is to continue managing atrial fibrillation with diltiazem infusion. If the patient becomes more stable then we will switch back to oral medications. Diabetes-continue Accu-Cheks and sliding scale. Continue full-strength Lovenox at this time. Remdesivir is being administered. Still very ill. Will need close monitoring. 02/18/2020 The patient is spending short periods off of BiPAP. I am going to decrease the expiratory pressure again. She is down to FiO2 of 65%. She is continuing her remdesivir and Decadron. Continue to wean oxygen support as tolerated. She has been stable on the diltiazem infusion. Tomorrow I will initiate her Cardizem CD 240 mg daily and stop the infusion 30 to 60 minutes after the first dose. Accu-Cheks are still somewhat elevated. This is likely due to the Decadron. She does have the sliding scale. I have also consolidated the metformin to 1 g twice a day from 500 mg every 6 hours. With the pulse more stable the blood pressure is stabilizing. I am still holding the hydralazine but she is on the losartan, diltiazem and clonidine. The D-dimer is less than 1.0 but she needs anticoagulation for her atrial fibrillation. Once she is more stable consider direct oral anticoagulant and discontinue the Lovenox. - Time Time Spent with patient: 15-24 minutes Medications reviewed and adjusted accordingly: Yes Anticipated Discharge Disposition: Home with Home Health Anticipated Discharge Timeframe: Unknown
[2020-02-18] MEDS: MONTELUKAST SODIUM 10 MG TABLET PO SCH (23:14)
[2020-02-19 05:46] LABS: ABSOLUTE LYMPHOCYTES (AUTO) 0.5 10^3/uL (0.5-4.7); ABSOLUTE MONOCYTES (AUTO) 0.4 10^3/uL (0.1-1.4); BASOPHILS % (AUTO) 0.3 % (0-2); HEMATOCRIT 37.2 % (36.0-47.0); HEMOGLOBIN 12.3 g/dL (12.0-15.5); LYMPHOCYTES % (AUTO) 6.1 % (13-45); MEAN CORPUSCULAR HEMOGLOBIN 29.6 pg (27.0-33.4); MEAN CORPUSCULAR HGB CONC 33.1 g/dL (32.0-36.0); MEAN CORPUSCULAR VOLUME 90 fl (80-97); MONOCYTES % (AUTO) 5.4 % (3-13); PLATELET COUNT 354 10^3/uL (150-450); RED BLOOD COUNT 4.15 10^6/uL (3.72-5.28); RED CELL DISTRIBUTION WIDTH 14.5 % (11.5-14.0); SEGMENTED NEUTROPHILS % (AUTO) 88.2 % (42-78); TOTAL CELLS COUNTED % (AUTO) 100 %; WHITE BLOOD COUNT 7.9 10^3/uL (4.0-10.5)
[2020-02-19] MEDS: DILTIAZEM HCL/D5W 125 MG/125 ML RTUINJ IV PRN (06:27)
[2020-02-19] MEDS: INSULIN LISPRO 100 UNIT/ML 3 ML VIAL SUBCUT SCH ×4 (08:15→21:46)
[2020-02-19] MEDS: METFORMIN HCL 500 MG TABLET PO SCH ×2 (08:16→17:03)
[2020-02-19] MEDS: CEFTRIAXONE 1 GM/D5W RTU 1 GM/50 ML RTUPB IV SCH (09:11)
[2020-02-19] MEDS: LOSARTAN POTASSIUM 50 MG TABLET PO SCH (09:12)
[2020-02-19] MEDS: MAGNESIUM OXIDE 400 MG TABLET PO SCH ×2 (09:12→17:04)
[2020-02-19] MEDS: CHOLECALCIFEROL (D3) 1,000 UNIT (25 MCG) TABLET PO SCH (09:12)
[2020-02-19] MEDS: DEXAMETHASONE SOD PHOSPHATE INJ 4 MG/1 ML VIAL IV SCH (09:12)
[2020-02-19] MEDS: ZINC SULFATE 220 MG CAPSULE PO SCH (09:12)
[2020-02-19] MEDS: ASCORBIC ACID 500 MG TABLET PO SCH ×2 (09:12→17:07)
[2020-02-19] MEDS: AZITHROMYCIN 250 MG TABLET PO SCH (09:12)
[2020-02-19] MEDS: ASPIRIN 81 MG TABLET, ENT COATED PO SCH (09:12)
[2020-02-19] MEDS: ENOXAPARIN SODIUM INJ 100 MG/1 ML DISP.SYRIN SUBCUT SCH ×2 (09:13→21:47)
[2020-02-19] MEDS: DILTIAZEM HCL 60 MG TABLET PO SCH ×3 (09:30→17:04)
[2020-02-19] MEDS ORDERED: DILTIAZEM HCL 240 MG CAPSULE.CR PO SCH (10:00)
[2020-02-19 11:15] LABS: APPEARANCE,URINE CLEAR; BILIRUBIN,URINE NEGATIVE (NEGATIVE); COLOR,URINE YELLOW; GLUCOSE, URINE 150 mg/dL (NEGATIVE); KETONES,URINE TRACE mg/dL (NEGATIVE); LEUKOCYTE ESTERASE,URINE NEGATIVE (NEGATIVE); NITRITE,URINE NEGATIVE (NEGATIVE); PROTEIN,URINE 100 mg/dL (NEGATIVE); URINE SPECIFIC GRAVITY 1.026; UROBILINOGEN,URINE NEGATIVE mg/dL (<2.0)
[2020-02-19] MEDS: REMDESIVIR 100 MG in NORMAL SALINE 250 ML IV SCH (11:20)
--- NOTE | 2020-02-19 16:53 | PDOC PROGRESS REPORT ---
Subjective Date:: 02/19/20 Subjective:: Patient still having some shortness of breath today. He states that she feels b dewayne. She still quite fatigued. She was seen while on BiPAP overnight. Did not seem to have any work of breathing. She was able to be transitioned to nasal cannula during the day. She was able to eat decently yesterday. Reason For Visit: COVID-19, PNEUMONIA,HYPEGLYDEMIA DIABETES MELLITUS Physical Exam Vital Signs: Temp Pulse Resp BP Pulse Ox 98.4 F 92 20 154/79 H 87 L 02/19/20 16:23 02/19/20 16:23 02/19/20 16:23 02/19/20 16:23 02/19/20 16:23 Intake & Output 02/18/20 02/19/20 02/20/20 06:59 06:59 06:59 Intake Total 969 817 464 Output Total 1000 650 200 Balance -31 167 264 Weight 90 kg 88.6 kg General appearance: PRESENT: no acute distress, cooperative Neck exam: ABSENT: JVD Respiratory exam: PRESENT: crackles, symmetrical, tachypnea, unlabored. ABSENT: accessory muscle use, wheezes Cardiovascular exam: PRESENT: RRR, +S1, +S2. ABSENT: tachycardia GI/Abdominal exam: PRESENT: soft. ABSENT: rebound, rigid, tenderness Neurological exam: PRESENT: alert, awake, oriented to person, oriented to place, oriented to time Psychiatric exam: ABSENT: agitated, anxious Focused psych exam: ABSENT: pressured speech Skin exam: ABSENT: jaundice Results Laboratory Results: 02/19/20 05:12 02/18/20 08:15 02/19/20 02/19/20 05:12 10:44 WBC 7.9 RBC 4.15 Hgb 12.3 Hct 37.2 MCV 90 MCH 29.6 MCHC 33.1 RDW 14.5 H Plt Count 354 Seg Neutrophils % 88.2 H Urine Color YELLOW Urine Appearance CLEAR Urine pH 6.0 Ur Specific Donora 1.026 Urine Protein 100 H Urine Glucose (UA) 150 H Urine Ketones TRACE H Urine Blood SMALL H Urine Nitrite NEGATIVE Ur Leukocyte Esterase NEGATIVE Urine WBC (Auto) 3 Urine RBC (Auto) 18 02/14/20 06:56 Blood Blood Culture - Final NO GROWTH IN 5 DAYS 02/14/20 05:14 Blood Blood Culture - Final NO GROWTH IN 5 DAYS 02/14/20 05:14 Troponin I 0.020 Impressions: Chest X-Ray 02/16/20 00:00 IMPRESSION: Interval worsening of multi lobar pneumonia. Assessment and Plan - Diagnosis (1) Pneumonia due to COVID-19 virus Is this a current diagnosis for this admission?: Yes Plan: Day 4/5 of remdesivir Dexamethasone day 5 Continue same, vitamin supplements Patient has completed 5 days of azithromycin and ceftriaxone. (2) Acute respiratory failure with hypoxia Is this a current diagnosis for this admission?: Yes Plan: Secondary to COVID-19 Currently requiring 6 L nasal cannula. Slept with BiPAP. We will see if we can keep on nasal cannula through today. Will escalate if needed. Incentive spirometer (3) Longstanding persistent atrial fibrillation Is this a current diagnosis for this admission?: Yes Plan: Currently on diltiazem drip. Plan was to de-escalate today. Give p.o. diltiazem IR 60 mg every 6 hours and try to wean patient off drip. Increase p.o. dose as needed. Convert to extended release tomorrow once off drip. (4) Hyperglycemia due to type 2 diabetes mellitus Qualifiers: Diabetes mellitus extermination supervisor insulin use: without extermination supervisor use Qualified Code(s): E11.65 - Type 2 diabetes mellitus with hyperglycemia Is this a current diagnosis for this admission?: Yes Plan: A1c of 6.5 shows prior excellent control. Currently hyperglycemic due to illness + steroids. C/w metformin and SSI (5) Hypertension Qualifiers: Hypertension type: essential hypertension Qualified Code(s): I10 - Essential (primary) hypertension Is this a current diagnosis for this admission?: Yes - Plan Summary Summary: Discussed with patient about contacting family members to keep them updated but she states that she does not want me to contact anyone and that she will do so if needed. States that her son is in [place] still hospitalized. - Time Time Spent with patient: 25-34 minutes Anticipated Discharge Disposition: Home, Self Care Anticipated Discharge Timeframe: UNDETERMIN
[2020-02-19] MEDS: MONTELUKAST SODIUM 10 MG TABLET PO SCH (21:47)
[2020-02-20] MEDS: DILTIAZEM HCL 60 MG TABLET PO SCH ×4 (00:21→17:53)
[2020-02-20] MEDS: INSULIN LISPRO 100 UNIT/ML 3 ML VIAL SUBCUT SCH ×4 (08:21→21:45)
[2020-02-20] MEDS: ASPIRIN 81 MG TABLET, ENT COATED PO SCH (09:04)
[2020-02-20] MEDS: LOSARTAN POTASSIUM 50 MG TABLET PO SCH (09:04)
[2020-02-20] MEDS: MAGNESIUM OXIDE 400 MG TABLET PO SCH ×2 (09:04→17:53)
[2020-02-20] MEDS: ASCORBIC ACID 500 MG TABLET PO SCH ×2 (09:04→17:53)
[2020-02-20] MEDS: ZINC SULFATE 220 MG CAPSULE PO SCH (09:04)
[2020-02-20] MEDS: CHOLECALCIFEROL (D3) 1,000 UNIT (25 MCG) TABLET PO SCH (09:04)
[2020-02-20] MEDS: METFORMIN HCL 500 MG TABLET PO SCH ×2 (09:04→17:53)
[2020-02-20] MEDS: ENOXAPARIN SODIUM INJ 100 MG/1 ML DISP.SYRIN SUBCUT SCH ×2 (09:05→21:45)
[2020-02-20] MEDS: DEXAMETHASONE SOD PHOSPHATE INJ 4 MG/1 ML VIAL IV SCH (09:05)
[2020-02-20] MEDS: REMDESIVIR 100 MG in NORMAL SALINE 250 ML IV SCH (10:09)
--- NOTE | 2020-02-20 15:29 | PDOC PROGRESS REPORT ---
Subjective Date:: 02/20/20 Subjective:: Patient seen comfortably in bed. She does not have much in terms of complaints. She still has some shortness of breath but feels adequate on the Oxymizer. She denies any nausea vomiting. She is eating small amounts. She has not done much in terms of ambulation. She is off the diltiazem drip. Reason For Visit: COVID-19, PNEUMONIA,HYPEGLYDEMIA DIABETES MELLITUS Physical Exam Vital Signs: Temp Pulse Resp BP Pulse Ox 97.9 F 96 20 162/88 H 94 02/20/20 08:00 02/20/20 13:50 02/20/20 08:00 02/20/20 08:00 02/20/20 10:08 Intake & Output 02/19/20 02/20/20 02/21/20 06:59 06:59 06:59 Intake Total 817 1254 250 Output Total 650 2325 Balance 167 -1071 250 Weight 88.6 kg 88.6 kg General appearance: PRESENT: no acute distress, cooperative, other - appears quite fatigued Neck exam: ABSENT: JVD Respiratory exam: PRESENT: clear to auscultation buffy, symmetrical, unlabored. ABSENT: crackles, tachypnea, wheezes Cardiovascular exam: PRESENT: RRR, +S1, +S2. ABSENT: tachycardia GI/Abdominal exam: PRESENT: soft. ABSENT: rebound, rigid, tenderness Neurological exam: PRESENT: alert, awake, oriented to person, oriented to place, oriented to time Results Laboratory Results: 02/19/20 05:12 02/18/20 08:15 02/14/20 05:14 Troponin I 0.020 Impressions: Chest X-Ray 02/16/20 00:00 IMPRESSION: Interval worsening of multi lobar pneumonia. Assessment and Plan - Diagnosis (1) Pneumonia due to COVID-19 virus Is this a current diagnosis for this admission?: Yes Plan: Day 5/5 of remdesivir Dexamethasone day 6 Continue same, vitamin supplements Patient has completed 5 days of azithromycin and ceftriaxone. (2) Acute respiratory failure with hypoxia Is this a current diagnosis for this admission?: Yes Plan: Secondary to COVID-19 Oxygen requirement has escalated to use your a lot about all the to. Slept with BiPAP. We will see if we can keep on nasal cannula through today. Will escalate if needed. Incentive spirometer (3) Longstanding persistent atrial fibrillation Is this a current diagnosis for this admission?: Yes Plan: Discontinue diltiazem drip overnight. Diltiazem IR uptitrated to 90 mg every 6 hours. Continue to monitor patient on telemetry. Hopefully this will be able to keep patient heart rate in control so we can convert to a CD tomorrow (4) Hyperglycemia due to type 2 diabetes mellitus Qualifiers: Diabetes mellitus terminal computer operator insulin use: without fpc use Qualified Code(s): E11.65 - Type 2 diabetes mellitus with hyperglycemia Is this a current diagnosis for this admission?: Yes Plan: A1c of 6.5 shows prior excellent control. Currently hyperglycemic due to illness + steroids. C/w metformin and SSI. (5) Hypertension Qualifiers: Hypertension type: essential hypertension Qualified Code(s): I10 - Essential (primary) hypertension Is this a current diagnosis for this admission?: Yes - Time Time Spent with patient: 15-24 minutes Anticipated Discharge Disposition: Home, Self Care Anticipated Discharge Timeframe: within 72 hours
[2020-02-20] MEDS: MONTELUKAST SODIUM 10 MG TABLET PO SCH (21:45)
[2020-02-21] MEDS: DILTIAZEM HCL 60 MG TABLET PO SCH ×4 (00:38→17:41)
[2020-02-21 05:25] LABS: ABSOLUTE BASOPHILS # (AUTO) 0.1 10^3/uL (0.0-0.2); ABSOLUTE LYMPHOCYTES (AUTO) 0.9 10^3/uL (0.5-4.7); ABSOLUTE MONOCYTES (AUTO) 0.4 10^3/uL (0.1-1.4); ABSOLUTE NEUT (AUTO) 9.3 10^3/uL (1.7-8.2); BASOPHILS % (AUTO) 0.5 % (0-2); HEMATOCRIT 38.5 % (36.0-47.0); HEMOGLOBIN 12.9 g/dL (12.0-15.5); LYMPHOCYTES % (AUTO) 8.2 % (13-45); MEAN CORPUSCULAR HEMOGLOBIN 29.8 pg (27.0-33.4); MEAN CORPUSCULAR HGB CONC 33.6 g/dL (32.0-36.0); MEAN CORPUSCULAR VOLUME 89 fl (80-97); MONOCYTES % (AUTO) 4.2 % (3-13); PLATELET COUNT 454 10^3/uL (150-450); RED BLOOD COUNT 4.34 10^6/uL (3.72-5.28); RED CELL DISTRIBUTION WIDTH 14.5 % (11.5-14.0); SEGMENTED NEUTROPHILS % (AUTO) 87.1 % (42-78); TOTAL CELLS COUNTED % (AUTO) 100 %; WHITE BLOOD COUNT 10.6 10^3/uL (4.0-10.5)
[2020-02-21] MEDS: INSULIN LISPRO 100 UNIT/ML 3 ML VIAL SUBCUT SCH ×4 (07:37→21:32)
[2020-02-21 07:59] LABS: APPEARANCE,URINE CLEAR; BILIRUBIN,URINE NEGATIVE (NEGATIVE); COLOR,URINE YELLOW; GLUCOSE, URINE >=500 mg/dL (NEGATIVE); KETONES,URINE NEGATIVE (NEGATIVE); LEUKOCYTE ESTERASE,URINE NEGATIVE (NEGATIVE); NITRITE,URINE NEGATIVE (NEGATIVE); PROTEIN,URINE 100 mg/dL (NEGATIVE); URINE SPECIFIC GRAVITY 1.011; UROBILINOGEN,URINE NEGATIVE mg/dL (<2.0)
[2020-02-21] MEDS: ENOXAPARIN SODIUM INJ 100 MG/1 ML DISP.SYRIN SUBCUT SCH ×2 (08:59→21:25)
[2020-02-21] MEDS: METFORMIN HCL 500 MG TABLET PO SCH ×2 (09:00→17:41)
[2020-02-21] MEDS: DEXAMETHASONE SOD PHOSPHATE INJ 4 MG/1 ML VIAL IV SCH (09:00)
[2020-02-21] MEDS: MAGNESIUM OXIDE 400 MG TABLET PO SCH ×2 (09:00→17:41)
[2020-02-21] MEDS: ASPIRIN 81 MG TABLET, ENT COATED PO SCH (09:00)
[2020-02-21] MEDS: ZINC SULFATE 220 MG CAPSULE PO SCH (09:00)
[2020-02-21] MEDS: ASCORBIC ACID 500 MG TABLET PO SCH ×2 (09:00→17:41)
[2020-02-21] MEDS: LOSARTAN POTASSIUM 50 MG TABLET PO SCH (09:00)
[2020-02-21] MEDS: CHOLECALCIFEROL (D3) 1,000 UNIT (25 MCG) TABLET PO SCH (09:00)
[2020-02-21] MEDS: METOPROLOL TARTRATE 50 MG TABLET PO SCH ×2 (13:55→21:26)
[2020-02-21] MEDS ORDERED: DIGOXIN INJ 0.5 MG/2 ML AMPULE IV ONE (14:00)
--- NOTE | 2020-02-21 18:53 | PDOC PROGRESS REPORT ---
Subjective Date:: 02/21/20 Subjective:: Patient stated that she feels better today. We did get her off underneath her c hair. She denies any chest pain no nausea or vomiting. She was able to eat her meals. Reason For Visit: COVID-19, PNEUMONIA,HYPEGLYDEMIA DIABETES MELLITUS Physical Exam Vital Signs: Temp Pulse Resp BP Pulse Ox 98.1 F 43 L 21 H 106/62 95 02/21/20 16:38 02/21/20 16:38 02/21/20 16:38 02/21/20 16:38 02/21/20 16:38 Intake & Output 02/20/20 02/21/20 02/22/20 06:59 06:59 06:59 Intake Total 1254 1290 Output Total 2325 1900 600 Balance -1071 -610 -600 Weight 88.6 kg 89.4 kg 89.4 kg General appearance: PRESENT: no acute distress, cooperative Neck exam: ABSENT: JVD Respiratory exam: PRESENT: clear to auscultation buffy, symmetrical, unlabored. ABSENT: tachypnea, wheezes Cardiovascular exam: PRESENT: irregular rhythm, +S1, +S2, tachycardia GI/Abdominal exam: PRESENT: soft. ABSENT: rebound, rigid, tenderness Neurological exam: PRESENT: alert, awake, oriented to person, oriented to place, oriented to time Psychiatric exam: ABSENT: agitated, anxious Focused psych exam: ABSENT: pressured speech Results Laboratory Results: 02/21/20 04:49 02/18/20 08:15 02/21/20 02/21/20 04:49 05:30 WBC 10.6 H RBC 4.34 Hgb 12.9 Hct 38.5 MCV 89 MCH 29.8 MCHC 33.6 RDW 14.5 H Plt Count 454 H Seg Neutrophils % 87.1 H Urine Color YELLOW Urine Appearance CLEAR Urine pH 8.0 Ur Specific [place] 1.011 Urine Protein 100 H Urine Glucose (UA) >=500 H Urine Ketones NEGATIVE Urine Blood NEGATIVE Urine Nitrite NEGATIVE Ur Leukocyte Esterase NEGATIVE Urine WBC (Auto) 3 Urine RBC (Auto) 16 02/14/20 05:14 Troponin I 0.020 Impressions: Chest X-Ray 02/16/20 00:00 IMPRESSION: Interval worsening of multi lobar pneumonia. Assessment and Plan - Diagnosis (1) Pneumonia due to COVID-19 virus Is this a current diagnosis for this admission?: Yes Plan: Completed 5 days of remdesivir, azithromycin and ceftriaxone. Dexamethasone day 7 Continue same, vitamin supplements (2) Acute respiratory failure with hypoxia Is this a current diagnosis for this admission?: Yes Plan: Secondary to COVID-19 pneumonia. Patient still requiring Oxymizer at 8 L. Encouraged ambulation, incentive spirometer. I did show patient how to use incentive spirometer today. (3) Longstanding persistent atrial fibrillation Is this a current diagnosis for this admission?: Yes Plan: Patient was in A. fib RVR today going into the 130s sustained. It improved after giving her 1 IV dose of digoxin and initiating her on Lopressor. We will continue diltiazem and Lopressor. Continue to monitor on telemetry. Continue therapeutic Lovenox. (4) Hyperglycemia due to type 2 diabetes mellitus Qualifiers: Diabetes mellitus usp insulin use: without marine oil terminal superintendent use Qualified Code(s): E11.65 - Type 2 diabetes mellitus with hyperglycemia Is this a current diagnosis for this admission?: Yes Plan: A1c of 6.5 shows prior excellent control. Currently hyperglycemic due to illness + steroids. C/w metformin and SSI. (5) Hypertension Qualifiers: Hypertension type: essential hypertension Qualified Code(s): I10 - Essential (primary) hypertension Is this a current diagnosis for this admission?: Yes - Time Time Spent with patient: 15-24 minutes Anticipated Discharge Disposition: Home with Home Health Anticipated Discharge Timeframe: >72hrs
[2020-02-21] MEDS: MONTELUKAST SODIUM 10 MG TABLET PO SCH (21:26)
[2020-02-22] MEDS: DILTIAZEM HCL 60 MG TABLET PO SCH ×3 (00:32→11:32)
[2020-02-22] MEDS: METOPROLOL TARTRATE 50 MG TABLET PO SCH ×3 (05:51→23:06)
[2020-02-22] MEDS: METFORMIN HCL 500 MG TABLET PO SCH ×2 (08:26→16:46)
[2020-02-22] MEDS: ZINC SULFATE 220 MG CAPSULE PO SCH (09:31)
[2020-02-22] MEDS: DEXAMETHASONE SOD PHOSPHATE INJ 4 MG/1 ML VIAL IV SCH (09:32)
[2020-02-22] MEDS: MAGNESIUM OXIDE 400 MG TABLET PO SCH ×2 (09:32→17:01)
[2020-02-22] MEDS: CHOLECALCIFEROL (D3) 1,000 UNIT (25 MCG) TABLET PO SCH (09:32)
[2020-02-22] MEDS: ENOXAPARIN SODIUM INJ 100 MG/1 ML DISP.SYRIN SUBCUT SCH ×2 (09:32→23:06)
[2020-02-22] MEDS: ASCORBIC ACID 500 MG TABLET PO SCH ×2 (09:32→17:01)
[2020-02-22] MEDS: ASPIRIN 81 MG TABLET, ENT COATED PO SCH (09:32)
[2020-02-22] MEDS: LOSARTAN POTASSIUM 50 MG TABLET PO SCH (09:32)
[2020-02-22] MEDS: INSULIN LISPRO 100 UNIT/ML 3 ML VIAL SUBCUT SCH ×4 (11:29→23:05)
--- NOTE | 2020-02-22 15:38 | PDOC PROGRESS REPORT ---
Subjective Date:: 02/22/20 Subjective:: Patient continues to feel better. She did do some ambulation into the chair yes terday. She is not having any chest pain and her heart rate is better controlled. She states she has been using her incentive spirometer. We were able to wean her down to about 2 L nasal cannula today. Reason For Visit: COVID-19, PNEUMONIA,HYPEGLYDEMIA DIABETES MELLITUS Physical Exam Vital Signs: Temp Pulse Resp BP Pulse Ox 98.5 F 64 18 116/83 95 02/22/20 11:23 02/22/20 14:00 02/22/20 11:23 02/22/20 11:23 02/22/20 11:23 Intake & Output 02/21/20 02/22/20 02/23/20 06:59 06:59 06:59 Intake Total 1290 250 Output Total 1900 2080 Balance -610 -1830 Weight 89.4 kg 89.6 kg General appearance: PRESENT: no acute distress, cooperative Neck exam: ABSENT: JVD Respiratory exam: PRESENT: clear to auscultation buffy, symmetrical, unlabored. ABSENT: tachypnea, wheezes Cardiovascular exam: PRESENT: irregular rhythm, +S1, +S2. ABSENT: tachycardia GI/Abdominal exam: PRESENT: soft. ABSENT: rebound, rigid, tenderness Neurological exam: PRESENT: alert, awake, oriented to person, oriented to place, oriented to time Results Laboratory Results: 02/21/20 04:49 02/18/20 08:15 02/14/20 05:14 Troponin I 0.020 Impressions: Chest X-Ray 02/16/20 00:00 IMPRESSION: Interval worsening of multi lobar pneumonia. Assessment and Plan - Diagnosis (1) Pneumonia due to COVID-19 virus Is this a current diagnosis for this admission?: Yes Plan: Completed 5 days of remdesivir, azithromycin and ceftriaxone. Dexamethasone day 8 Continue same, vitamin supplements (2) Acute respiratory failure with hypoxia Is this a current diagnosis for this admission?: Yes Plan: Secondary to COVID-19 pneumonia. We were able to get patient down to 5 L nasal cannula yesterday and this morning she is doing better as she was 100% on 5 L. We are further able to de-escalate her down to 2 L. We will continue to monitor her de-escalate further as tolerated. (3) Longstanding persistent atrial fibrillation Is this a current diagnosis for this admission?: Yes Plan: Heart rate is now better controlled. I will switch her to extended release diltiazem. Continue Lopressor. Monitor on telemetry. (4) Hyperglycemia due to type 2 diabetes mellitus Qualifiers: Diabetes mellitus longterm insulin use: without longterm use Qualified Code(s): E11.65 - Type 2 diabetes mellitus with hyperglycemia Is this a current diagnosis for this admission?: Yes Plan: A1c of 6.5 shows prior excellent control. Currently hyperglycemic due to illness + steroids. C/w metformin and SSI. (5) Hypertension Qualifiers: Hypertension type: essential hypertension Qualified Code(s): I10 - Essential (primary) hypertension Is this a current diagnosis for this admission?: Yes Plan: Continue losartan. Hydralazine, clonidine and hydrochlorothiazide have been on hold since admission. She has had just increased her diltiazem dose and started on Lopressor to control heart rate, we will keep her other antihypertensives on hold for now and see what her blood pressure does before deciding if to resume her HCTZ first. - Time Time Spent with patient: 15-24 minutes Anticipated Discharge Disposition: Home, Self Care Anticipated Discharge Timeframe: within 48 hours
[2020-02-22] MEDS ORDERED: DILTIAZEM HCL 180 MG CAPSULE.CR PO SCH (18:00)
[2020-02-22] MEDS: MONTELUKAST SODIUM 10 MG TABLET PO SCH (23:06)
[2020-02-23] MEDS: METOPROLOL TARTRATE 50 MG TABLET PO SCH (05:18)
[2020-02-23] MEDS: METFORMIN HCL 500 MG TABLET PO SCH (08:08)
[2020-02-23] MEDS: INSULIN LISPRO 100 UNIT/ML 3 ML VIAL SUBCUT SCH ×2 (08:08→11:46)
[2020-02-23] MEDS ORDERED: APIXABAN 5 MG TABLET PO SCH (10:00)
[2020-02-23] MEDS: CHOLECALCIFEROL (D3) 1,000 UNIT (25 MCG) TABLET PO SCH (10:07)
[2020-02-23] MEDS: ASCORBIC ACID 500 MG TABLET PO SCH (10:07)
[2020-02-23] MEDS: DEXAMETHASONE SOD PHOSPHATE INJ 4 MG/1 ML VIAL IV SCH (10:07)
[2020-02-23] MEDS: LOSARTAN POTASSIUM 50 MG TABLET PO SCH (10:08)
[2020-02-23] MEDS: MAGNESIUM OXIDE 400 MG TABLET PO SCH (10:08)
[2020-02-23] MEDS: ZINC SULFATE 220 MG CAPSULE PO SCH (10:08)
[2020-02-23] MEDS: ASPIRIN 81 MG TABLET, ENT COATED PO SCH (10:08)
[2020-02-23] MEDS ORDERED: METOPROLOL TARTRATE 50 MG TABLET PO SCH (13:00)
--- NOTE | 2020-02-23 13:53 | PDOC DISCHARGE SUMMARY ---
Impression - Admit/DC Date/PCP Admission Date/Primary Care Provider: 02/14/20 08:09 GAB IRWIN Discharge Date: 02/23/20 - Discharge Diagnosis (1) Pneumonia due to COVID-19 virus Is this a current diagnosis for this admission?: Yes (2) Acute respiratory failure with hypoxia Is this a current diagnosis for this admission?: Yes (3) Longstanding persistent atrial fibrillation Is this a current diagnosis for this admission?: Yes (4) Hyperglycemia due to type 2 diabetes mellitus Is this a current diagnosis for this admission?: Yes (5) Hypertension Is this a current diagnosis for this admission?: Yes - Additional Information Resuscitation Status: Full Code Referrals: GAB IRWIN MD [Primary Care Provider] - Follow up as needed TARSHA PINEDA MD [ACTIVE STAFF] - Prescriptions: Diltiazem HCl [Cardizem Cd 180 mg Capsule] 180 mg PO Q12 #60 capsule.cr Apixaban [Eliquis 5 mg Tablet] 5 mg PO BID #60 tablet Metoprolol Tartrate [Lopressor 50 mg Tablet] 50 mg PO Q12 #60 tablet Ascorbic Acid [Vitamin C 500 mg Tablet] 1,000 mg PO BID 15 Days Cholecalciferol (Vitamin D3) [Vitamin D3 1000 Unit Tablet] 2,000 unit PO DAILY 15 Days #30 tablet Zinc Sulfate [Zinc-220 Capsule] 220 mg PO DAILY #30 capsule Home Medications: Metformin HCl [Glucophage] 1,000 mg PO BIDBS 03/09/14 Ibuprofen [Ibu] 400 mg PO Q8HP PRN #15 tablet 02/07/20 Hydrochlorothiazide [Hydrodiuril 25 mg Tablet] 25 mg PO DAILY 02/14/20 Losartan Potassium 100 mg PO DAILY 02/14/20 Apixaban [Eliquis 5 mg Tablet] 5 mg PO BID #60 tablet 02/23/20 Ascorbic Acid [Vitamin C 500 mg Tablet] 1,000 mg PO BID 15 Days 02/23/20 Cholecalciferol (Vitamin D3) [Vitamin D3 1000 Unit Tablet] 2,000 unit PO DAILY 15 Days #30 tablet 02/23/20 Diltiazem HCl [Cardizem Cd 180 mg Capsule] 180 mg PO Q12 #60 capsule.cr 02/23/20 Metoprolol Tartrate [Lopressor 50 mg Tablet] 50 mg PO Q12 #60 tablet 02/23/20 Zinc Sulfate [Zinc-220 Capsule] 220 mg PO DAILY #30 capsule 02/23/20 History of Present Illiness History of Present Illness: According to admitting provider: JOHNATHAN SALAS is a 74 year old female who sees Dr. Irwin as her PCP. She tested positive for COVID-19 on February 06. Her son has been in [facility] for 2 weeks with Covid pneumonia. She states that approximately 5 to 6 days ago she began to feel poorly. It was primarily fevers followed by a cough. Her chest x-ray reveals bilateral groundglass infiltrates. She has a past medical history of hypertension and type 2 diabetes mellitus. She is quite diaphoretic and tachypneic at this time. She is saturating greater than 90% on room air. She will be admitted to the hospitalist service. The standard treatment regimen for COVID-19 will be implemented. Will monitor closely for possible administration of convalescent plasma or Remdesivir. Hospital Course Hospital Course: (1) Pneumonia due to COVID-19 virus Is this a current diagnosis for this admission?: Yes Plan: Completed 5 days of remdesivir, azithromycin and ceftriaxone and 10days of dexamethasone. Continue zinc and vitamin supplements (2) Acute respiratory failure with hypoxia Is this a current diagnosis for this admission?: Yes Plan: Secondary to COVID-19 pneumonia. Had worsening hypoxia initially requiring BIPAP at a point. Gradually improved with treatment. Has been on room air since . AMbulated patient today with pulse ox 95-100% on room air. (3) Longstanding persistent atrial fibrillation Is this a current diagnosis for this admission?: Yes Plan: Very significant rapid ventricular response especially earlier in her hospital course. This was triggered by her infection. At a point she required Cardizem drip. We were able to wean off this several days ago. She has been maintained with p.o. medications for the past few days. Heart rate is doing good. I discussed it with her operations expert Dr. Chong today via phone who recommends putting patient on diltiazem CD 180 mg q12h and metoprolol 50mg q12 upon discharge. Patient set to follow-up with Dr. Chong. I have also discussed with patient's daughter who happens to be a MEDICAL TRANSCRIPTION SUPERVISOR and she will be monitoring patient's heart rate, oxygen and vital signs at home. Started on Eliquis. (4) Hyperglycemia due to type 2 diabetes mellitus Qualifiers: Diabetes mellitus intermediate card tender insulin use: without fpc use Qualified Code(s): E11.65 - Type 2 diabetes mellitus with hyperglycemia Is this a current diagnosis for this admission?: Yes Plan: A1c of 6.5 shows prior excellent control. Hyperglycemia due to illness + steroids. Steroids have been stopped. C/w home regimen upon discharge. (5) Hypertension Qualifiers: Hypertension type: essential hypertension Qualified Code(s): I10 - Essential (primary) hypertension Is this a current diagnosis for this admission?: Yes Plan: Patient's blood pressure has been adequate on current regimen while in the hospital. I did increase her diltiazem dose and started on Lopressor. I have continued her losartan and resumed hydrochlorothiazide. Discontinue clonidine and hydralazine. Patient to discuss with her operations expert before resuming. Physical Exam Vital Signs: Temp Pulse Resp BP Pulse Ox 97.8 F 58 L 18 117/70 95 02/23/20 11:06 02/23/20 11:06 02/23/20 11:06 02/23/20 11:06 02/23/20 12:00 Intake & Output 02/22/20 02/23/20 02/24/20 06:59 06:59 06:59 Intake Total 250 500 480 Output Total 2080 Balance -1830 500 480 Weight 89.6 kg 89.5 kg General appearance: PRESENT: no acute distress, cooperative Neck exam: ABSENT: JVD Respiratory exam: PRESENT: clear to auscultation buffy, unlabored. ABSENT: accessory muscle use, tachypnea, wheezes Cardiovascular exam: PRESENT: RRR, +S1, +S2. ABSENT: tachycardia GI/Abdominal exam: PRESENT: soft. ABSENT: rebound, rigid, tenderness Musculoskeletal exam: PRESENT: ambulatory Neurological exam: PRESENT: alert, awake, oriented to person, oriented to place, oriented to time Results Laboratory Results: WBC 10.6 10^3/uL (4.0-10.5) H 02/21/20 04:49 RBC 4.34 10^6/uL (3.72-5.28) 02/21/20 04:49 Hgb 12.9 g/dL (12.0-15.5) 02/21/20 04:49 Hct 38.5 % (36.0-47.0) 02/21/20 04:49 MCV 89 fl (80-97) 02/21/20 04:49 MCH 29.8 pg (27.0-33.4) 02/21/20 04:49 MCHC 33.6 g/dL (32.0-36.0) 02/21/20 04:49 RDW 14.5 % (11.5-14.0) H 02/21/20 04:49 Plt Count 454 10^3/uL (150-450) H 02/21/20 04:49 Lymph % (Auto) 8.2 % (13-45) L 02/21/20 04:49 [place] % (Auto) 4.2 % (3-13) 02/21/20 04:49 Eos % (Auto) 0.0 % (0-6) 02/21/20 04:49 Baso % (Auto) 0.5 % (0-2) 02/21/20 04:49 Absolute Neuts (auto) 9.3 10^3/uL (1.7-8.2) H 02/21/20 04:49 Absolute Lymphs (auto) 0.9 10^3/uL (0.5-4.7) 02/21/20 04:49 Absolute Monos (auto) 0.4 10^3/uL (0.1-1.4) 02/21/20 04:49 Absolute Eos (auto) 0.0 10^3/uL (0.0-0.6) 02/21/20 04:49 Absolute Basos (auto) 0.1 10^3/uL (0.0-0.2) 02/21/20 04:49 Seg Neutrophils % 87.1 % (42-78) H 02/21/20 04:49 PT 12.9 SEC (11.4-15.4) 02/14/20 05:14 INR 0.95 02/14/20 05:14 D-Dimer 1.13 ug/mL (0.00-0.50) H 02/20/20 04:45 Carbonic Acid 1.13 mmol/L (1.05-1.35) 02/16/20 12:40 HCO3/H2CO3 Ratio 22:1 02/16/20 12:40 ABG pH 7.45 (7.35-7.45) 02/16/20 12:40 ABG pCO2 37.6 mmHg (35-45) 02/16/20 12:40 ABG pO2 42.6 mmHg (80-100) L 02/16/20 12:40 ABG HCO3 25.7 mmol/L (20-24) H 02/16/20 12:40 ABG Total CO2 26.8 mmol/L (21-25) H 02/16/20 12:40 ABG O2 Saturation 80.9 % (94-98) L 02/16/20 12:40 ABG Base Excess 1.8 mmol/L 02/16/20 12:40 VBG pH 7.40 (7.30-7.42) 02/14/20 05:14 VBG pCO2 38.7 mmHg (35-63) 02/14/20 05:14 VBG HCO3 23.2 mmol/L (20-32) 02/14/20 05:14 VBG Base Excess -1.4 mmol/L 02/14/20 05:14 FiO2 85% 02/16/20 12:40 Sodium 141.2 mmol/L (137-145) 02/18/20 08:15 Potassium 4.0 mmol/L (3.6-5.0) 02/18/20 08:15 Chloride 101 mmol/L (98-107) 02/18/20 08:15 Carbon Dioxide 30 mmol/L (22-30) 02/18/20 08:15 Anion Gap 10 (5-19) 02/18/20 08:15 BUN 22 mg/dL (7-20) H 02/18/20 08:15 Creatinine 0.72 mg/dL (0.52-1.25) 02/18/20 08:15 Est GFR ( Amer) > 60 (>60) 02/18/20 08:15 Est GFR (Non-Af Amer) Cancelled 02/18/20 05:10 Est GFR (MDRD) Non-Af > 60 (>60) 02/18/20 08:15 Glucose 184 mg/dL (75-110) H 02/18/20 08:15 POC Glucose 242 mg/dL (70-110) H 02/23/20 11:07 Hemoglobin A1c % 6.5 % (4.7-6.0) H 02/15/20 04:57 Lactic Acid 0.8 mmol/L (0.7-2.1) 02/14/20 11:06 Calcium 8.8 mg/dL (8.4-10.2) 02/18/20 08:15 Magnesium 2.2 mg/dL (1.6-2.3) 02/18/20 08:15 Ferritin 265.00 ng/mL (11.1-264.0) H 02/14/20 06:56 Total Bilirubin 0.6 mg/dL (0.2-1.3) 02/14/20 05:14 Direct Bilirubin 0.2 mg/dL (0.0-0.4) 02/14/20 05:14 Neonat Total Bilirubin Not Reportable 02/14/20 05:14 Neonat Direct Bilirubin Not Reportable 02/14/20 05:14 Neonat Indirect Bili Not Reportable 02/14/20 05:14 AST 30 U/L (14-36) 02/14/20 05:14 ALT 17 U/L (<35) 02/14/20 05:14 Alkaline Phosphatase 47 U/L (38-126) 02/14/20 05:14 Lactate Dehydrogenase 261 U/L (120-246) H 02/14/20 06:56 Troponin I 0.020 ng/mL 02/14/20 05:14 C-Reactive Protein 225.5 mg/L (<10.0) H 02/15/20 04:57 Total Protein 8.6 g/dL (6.3-8.2) H 02/14/20 05:14 Albumin 4.3 g/dL (3.5-5.0) 02/14/20 05:14 EGFR Cancelled 02/18/20 05:10 Urine Color YELLOW 02/21/20 05:30 Urine Appearance CLEAR 02/21/20 05:30 Urine pH 8.0 (5.0-9.0) 02/21/20 05:30 Ur Specific [place] 1.011 02/21/20 05:30 Urine Protein 100 mg/dL (NEGATIVE) H 02/21/20 05:30 Urine Glucose (UA) >=500 mg/dL (NEGATIVE) H 02/21/20 05:30 Urine Ketones NEGATIVE mg/dL (NEGATIVE) 02/21/20 05:30 Urine Blood NEGATIVE (NEGATIVE) 02/21/20 05:30 Urine Nitrite NEGATIVE (NEGATIVE) 02/21/20 05:30 Urine Nitrite (Reflex) NEGATIVE (NEGATIVE) 02/14/20 05:36 Urine Bilirubin NEGATIVE (NEGATIVE) 02/21/20 05:30 Urine Urobilinogen NEGATIVE mg/dL (<2.0) 02/21/20 05:30 Ur Leukocyte Esterase NEGATIVE (NEGATIVE) 02/21/20 05:30 Leukocyte Esterase Rfl NEGATIVE (NEGATIVE) 02/14/20 05:36 Urine WBC (Auto) 3 /HPF 02/21/20 05:30 Urine RBC (Auto) 16 /HPF 02/21/20 05:30 U Hyaline Cast (Auto) 1 /LPF 02/14/20 05:36 Urine Bacteria (Auto) TRACE /HPF 02/14/20 05:36 Urine WBC (Reflex) 1 /HPF 02/14/20 05:36 Squamous Epi Cells Auto <1 /HPF 02/21/20 05:30 Urine Mucus (Auto) RARE /LPF 02/21/20 05:30 Urine Yeast (Budding) PRESENT /HPF 02/21/20 05:30 Urine Ascorbic Acid NEGATIVE (NEGATIVE) 02/21/20 05:30 02/14/20 05:14 Troponin I 0.020 Impressions: Chest X-Ray 02/16/20 00:00 IMPRESSION: Interval worsening of multi lobar pneumonia. Plan Time Spent: Greater than 30 Minutes Stroke Is this a Stroke Patient?: No Acute Heart Failure Is this a Heart Failure Patient?: No
[2020-02-23 14:20] VITALS: BP 133/85
[2020-02-23] MEDS ORDERED: DILTIAZEM HCL 180 MG CAPSULE.CR PO SCH (22:00)
== END 2020-02-23 14:30 | disposition home health service (06) | DRG 177 ==
LOC: ER 03:12 → EH 06:51 → UNDOADMIN 06:51 → EH 08:09 → 3W 16:35
PROVIDERS: ADMIT Hospitalist; ATTEND Internal Medicine
PROC: XW033E5 Introduction of Remdesivir Anti-infective into Peripheral Vein, Percutaneous Approach, New Technology Group 5 (ICD-10-PCS; principal; 2020-02-16)
PROC: 5A09457 Assistance with Respiratory Ventilation, 24-96 Consecutive Hours, Continuous Positive Airway Pressure (ICD-10-PCS; 2020-02-16)
PROC: 3E02340 Introduction of Influenza Vaccine into Muscle, Percutaneous Approach (ICD-10-PCS; 2020-02-23)
DX: U07.1 COVID-19 (principal); J12.89 Other viral pneumonia; J96.01 Acute respiratory failure with hypoxia; I48.11 Longstanding persistent atrial fibrillation; E11.65 Type 2 diabetes mellitus with hyperglycemia; Z79.01 Long term (current) use of anticoagulants; I10 Essential (primary) hypertension; K21.9 Gastro-esophageal reflux disease without esophagitis; D64.9 Anemia, unspecified; Z79.899 Other long term (current) drug therapy; F32.9 Major depressive disorder, single episode, unspecified; M19.90 Unspecified osteoarthritis, unspecified site; Z90.49 Acquired absence of other specified parts of digestive tract; Z87.891 Personal history of nicotine dependence; Z88.0 Allergy status to penicillin; Z79.84 Long term (current) use of oral hypoglycemic drugs; Z23 Encounter for immunization
CPT/HCPCS: 36415; 71045; 80048; 80053; 81001; 82728; 82803; 82962; 83036; 83605; 83615; 83735; 84484; 85025; 85379; 85610; 86140; 87040; 90471; 90686; 93005; 93010; 94660; 94799; 96361; 96374; 99285; G0008; J0696; J1100; J1160; J1650; J1815; J1940; J3475; J3490; J7030; J7040; J7050; J7120

== ENCOUNTER → 2020-03-24 | Outpatient (CLI) | payer MEDICARE ==
--- NOTE | 2020-03-24 13:08 | WOMENS IMAGING REPORT ---
EXAM DESCRIPTION: BILAT SCREENING MAMMO W/CAD IMAGES COMPLETED DATE/TIME: 03/24/2020 12:16 pm REASON FOR STUDY: ROUTINE SCREENING MAMMOGRAM Z12.31 Z12.31 ENCNTR SCREEN MAMMOGRAM FOR MALIGNANT N EOPLASM OF MEGHAN COMPARISON: Multiple since 2014 EXAM PARAMETERS: Standard craniocaudal and mediolateral oblique views of each breast recorded using digital acquisition. Read with the assistance of CAD. .[facility] - [employer] [facility] Endoscopy Version 9.2 LIMITATIONS: None. FINDINGS: No suspicious masses, suspicious calcifications or architectural distortion. No areas of c oncern. IMPRESSION: NEGATIVE MAMMOGRAM. BIRADS 1 BREAST DENSITY: b. There are scattered areas of fibroglandular density. BIRAD: ASSESSMENT: 1 NEGATIVE RECOMMENDATION: ROUTINE SCREENING Please continue yearly bilateral screening mammography/tomosynthesis in March 2021 COMMENT: The patient has been notified of the results by letter per [place] requirements. Additional no tification policies are in place for contacting patient with suspicious or incomplete findings. Quality ID #[id number]: The [employer] recommends an annual screening mammogram for women aged 40 years or over. This facility utilizes a reminder system to ensure that all patients receive reminder letters, and/or direct phone calls for appointments. This includes reminders for routine scr eening mammograms, diagnostic mammograms, or other Breast Imaging Interventions when appropriate. Th is patient will be placed in the appropriate reminder system. TECHNICAL DOCUMENTATION: FINDING NUMBER: (1) ASSESSMENT: (1) JOB ID: [id number] 2010 [employer]- All Rights Reserved Reading location - IP/workstation name: [email or web address]
== END ==
LOC: WI 15:46
PROVIDERS: ATTEND Internal Medicine
DX: Z12.31 Encounter for screening mammogram for malignant neoplasm of breast (principal)
CPT/HCPCS: 77067

== ENCOUNTER → 2020-03-31 | Outpatient (CLI) | payer MEDICARE ==
--- NOTE | 2020-04-01 07:24 | RADIOLOGY REPORT (SQ) ---
EXAM DESCRIPTION: L SPINE WHOLE IMAGES COMPLETED DATE/TIME: 03/31/2020 4:06 pm REASON FOR STUDY: pain rt hip, lumbago with sciatica M25.551 PAIN IN RIGHT HIP M54.40 LUMBAGO WITH SCIATICA, UNSPECIFIED SIDE COMPARISON: 2015 NUMBER OF VIEWS: Five views including obliques. TECHNIQUE: AP, lateral, oblique, and sacral radiographic images acquired of the lumbar spine. LIMITATIONS: None. FINDINGS: MINERALIZATION: Normal. SEGMENTATION: Normal. No transitional anatomy. ALIGNMENT: Grade 1 spondylolisthesis L4-5. VERTEBRAE: Maintained height. No fracture or worrisome bone lesion. DISCS: Preserved height. No significant osteophytes or end plate irregularity. POSTERIOR ELEMENTS: Facet arthropathy. HARDWARE: None in the spine. PARASPINAL SOFT TISSUES: Calcified aorta. PELVIS: See separate report same date. OTHER: No other significant finding. IMPRESSION: Facet arthropathy. Mild malalignment. TECHNICAL DOCUMENTATION: JOB ID: [id number] 2010 [employer]- All Rights Reserved Reading location - IP/workstation name: [email or web address]
--- NOTE | 2020-04-01 07:25 | RADIOLOGY REPORT (SQ) ---
EXAM DESCRIPTION: HIP RIGHT AP/LATERAL IMAGES COMPLETED DATE/TIME: 03/31/2020 4:06 pm REASON FOR STUDY: pain rt hip, lumbago with sciatica M25.551 PAIN IN RIGHT HIP M54.40 LUMBAGO WITH SCIATICA, UNSPECIFIED SIDE COMPARISON: 2009 NUMBER OF VIEWS: Two views. TECHNIQUE: AP pelvis and additional frog legview of the right hip. LIMITATIONS: None. FINDINGS: MINERALIZATION: Normal. RIGHT HIP: Joint space narrowing and mild osteophyte and subchondral cyst formation. LEFT HIP: No fracture or dislocation. No worrisome bone lesions. Limited views. PUBIS AND ISCHIUM: No fracture. PELVIS: No fracture. SACRUM: No fracture or dislocation. No worrisome bone lesions. LOWER LUMBAR SPINE: See separate report same date. SOFT TISSUES: Calcified fibroids. OTHER: No other significant finding. IMPRESSION: Mild -moderate osteoarthritis right hip. TECHNICAL DOCUMENTATION: JOB ID: [id number] 2010 [employer]- All Rights Reserved Reading location - IP/workstation name: [email or web address]
== END ==
LOC: RAD 15:34
PROVIDERS: ATTEND Internal Medicine
DX: M25.551 Pain in right hip (principal); M54.40 Lumbago with sciatica, unspecified side
CPT/HCPCS: 72110